=== PATIENT | female | born 1940 | race Caucasian/White ===

== ENCOUNTER 2022-04-08 15:04 | Inpatient (IN) | payer MEDICARE, OTHER ==
[~2022-04-08] VITALS: Ht 152.4 cm; Wt 65.8 kg
--- NOTE | 2022-04-08 15:06 | NUR ---
PT SUSAN KRISHNAMURTHY FROM SNF TO ER BED 01, PER EMS REPORT, PT BEEN FEELING WEEK X 3 DAYS AND DIZZINESS, FEELING "FAINT" SINCE THIS MORNING. PT IS AAOX3 AMBULATORY W/ ASSIST. UNSTEADY. VITALS STABLE. VSS. AWAITING MD GARCIA.
--- NOTE | 2022-04-08 15:18 | NUR ---
DR DE LEÓN AT BEDSIDE FOR EVAL.
[2022-04-08] MEDS ORDERED: IV NS 0.9% 1,000 ML BAG IV ONE (15:30)
--- NOTE | 2022-04-08 15:30 | NUR ---
IV LINE STARTED BLOOD DRAWN AND SENT TO LAB.
[2022-04-08 15:41] LABS: BASOPHILS # (AUTO) 0.1 K/uL (0.0-0.2); BASOPHILS % (AUTO) 0.4 % (0.0-2.0); EOSINOPHILS % (AUTO) 0.7 % (0.0-6.0); HEMATOCRIT 39 % (33-45); HEMOGLOBIN 12.7 g/dL (11.5-14.8); LYMPHOCYTES # (AUTO) 0.7 K/uL (0.8-4.8); LYMPHOCYTES % (AUTO) 5.6 % (20.0-44.0); MEAN CORPUSCULAR HGB CONC 33 g/dl (31.0-36.0); MEAN CORPUSCULAR VOLUME 83 fL (82-100); MONOCYTES # (AUTO) 1.1 K/uL (0.1-1.30); MONOCYTES % (AUTO) 8.7 % (2.0-12.0); NEUTROPHILS # (AUTO) 10.9 K/uL (1.8-8.9); NEUTROPHILS % (AUTO) 84.6 % (43.0-81.0); PLATELET COUNT (AUTO) 234 K/uL (150-450); WHITE BLOOD COUNT (AUTO) 12.8 K/uL (4.3-11.0)
[2022-04-08 15:54] LABS: CALCIUM, SERUM 8.9 mg/dL (8.5-10.1); CARBON DIOXIDE 30 mmol/L (21-32); CHLORIDE 101 mmol/L (98-107); CREATININE 0.6 mg/dL (0.6-1.3); GLUCOSE 127 mg/dL (74-106); POTASSIUM 3.9 mmol/L (3.5-5.1); SODIUM SERUM 134 mmol/L (136-145); UREA NITROGEN, BLOOD 20 mg/dL (7-18)
[2022-04-08 15:59] LABS: ALANINE AMINOTRANSFERASE 33 U/L (12-78); ALBUMIN 3.6 g/dL (3.4-5.0); ALKALINE PHOSPHATASE 101 U/L (46-116); ASPARTATE AMINOTRANSFERASE 23 U/L (15-37); BILIRUBIN,DIRECT 0.3 mg/dL (0.0-0.2); TOTAL PROTEIN, SERUM 7.3 g/dL (6.4-8.2)
[2022-04-08] MEDS ORDERED: IOHEXOL-300 100 ML VIAL IV ONE (16:05)
[2022-04-08] MEDS ORDERED: IV NS 0.9% 250 ML IV ONE (16:05)
[2022-04-08] MEDS ORDERED: CT SWABBABLE VALVE TRANS SET 1 EA INFUS.SET MC ONE (16:06)
[2022-04-08 16:07] LABS: THYROID STIMULATING HORMONE 1.154 uIU/mL (0.358-3.74)
--- NOTE | 2022-04-08 16:11 | NUR ---
PT TO RADIOLOGY FOR HEAD CT SCAN VIA [facility].
--- NOTE | 2022-04-08 17:08 | NUR ---
[facility] CALLED [employer] PAGED.
[2022-04-08 17:29] LABS: BILIRUBIN,URINE NEGATIVE (NEGATIVE); COLOR,URINE YELLOW (YELLOW); LEUKOCYTE ESTERASE ,URINE NEGATIVE (NEGATIVE); NITRITE, URINE POSITIVE (NEGATIVE); PH,URINE 6.5 (5.0-8.0); PROTEIN,URINE NEGATIVE (NEGATIVE); UGLUCOSE NEGATIVE (NEGATIVE); UROBILINOGEN,URINE 0.2 EU/dL (0.2)
[2022-04-08 17:36] LABS: BACTERIA,URINE Many /HPF (None Seen); SQUAMOUS EPITHELIAL CELL,UR Few /HPF (None Seen)
--- NOTE | 2022-04-08 18:03 | NUR ---
[facility] [phone] BARBA.
[2022-04-08] MEDS ORDERED: ACETAMINOPHEN 325 MG TABLET PO PRN (18:30)
[2022-04-08] MEDS ORDERED: ENOXAPARIN SODIUM 40 MG/0.4 ML DISP.SYRIN SQ SCH (18:30)
[2022-04-08] MEDS ORDERED: DEXTROSE 50%-WATER 50 ML DISP.SYRIN IV PRN (18:30)
[2022-04-08] MEDS ORDERED: MORPHINE SULFATE INJ 2 MG/ML DISP.SYRIN IV PRN (18:30)
[2022-04-08] MEDS ORDERED: hydrALAZINE HCL IV 20 MG VIAL IV PRN (18:30)
[2022-04-08] MEDS ORDERED: ONDANSETRON HCL/PF 4 MG/2 ML VIAL IVP PRN (18:30)
[2022-04-08] MEDS ORDERED: INSULIN REGULAR, HUMAN 100 UNIT/ML 3 ML VIAL SQ PRN (18:30)
--- NOTE | 2022-04-08 21:08 | NUR ---
Awilda solitario in [facility] - 04/08/22 at 2122 by JAY JAY KAI COLLECTED AND SENT TO RT
--- NOTE | 2022-04-08 21:08 | NUR ---
Awilda solitario in ED - 04/08/22 at 2122 by JAY JAY LAB AT [facility] FOR REPEAT TROPONIN
--- NOTE | 2022-04-08 22:12 | NUR ---
CALLED 3W, REPORT GIVEN TO ARLEY ALMONTE. PT WILL BE GOING TO RM 328.
[2022-04-08 22:25] VITALS: BP 144/78
--- NOTE | 2022-04-08 22:30 | NUR ---
PT TRANSPORTED TO [facility] 328-B [facility] ACLS PROTOCOL, REMAINED STABLE AND IN NO ACUTE RESPIRATORY DISTRESS. PT RECEIVED BY ARLEY ALMONTE
--- NOTE | 2022-04-08 22:30 | NUR ---
RN NOTES; RECEIVED PT FROM ER IN RM 328-2,AAOX3 ABLE TO MAKE NEEDS KNOWN,MICHAEL WELL ON RM AIR SATING 99%,NO SIGN SOB/DISTRESS NOTED,NO COMPLAIN OF PAIN/DISCOMFORT AT THIS TIMES,IV ACCESS ON RAC 20G SL,PATENT AND INTACT,PT WAS ORIENT THE RM AND VERBALLY UNDERSTANDING,SAFETY MEASURE IN PLACE,CALL LIGHT WITHIN REACH.WILL CONTINUE TO MONITOR.
[2022-04-08] MEDS: ATORVASTATIN 10 MG TABLET PO SCH (23:11)
[2022-04-08] MEDS: MONTELUKAST SODIUM (10MG) 10 MG TABLET PO SCH (23:15)
[2022-04-08] MEDS ORDERED: CEFTRIAXONE 1 G VIAL ONE (23:27)
[2022-04-08] MEDS: CEFTRIAXONE 1 G in IV D5W 50 ML IV SCH (23:30)
[2022-04-08] MEDS: ALBUTEROL FS 2.5 MG/3 ML VIAL.NEB NEB SCH (23:41)
[2022-04-09] MEDS: ALBUTEROL FS 2.5 MG/3 ML VIAL.NEB NEB SCH ×5 (03:30→20:15)
--- NOTE | 2022-04-09 06:41 | NUR ---
RN CLOSING NOTE; PATIENT IN BED AAOX3 ABLE TO MAKE NEEDS KNOWN,MICHAEL WELL ON RM AIR SATING 98 %,NO SIGN SOB/DISTRESS NOTED,NO COMPLAIN OF PAIN/DISCOMFORT DURING SHIFT,DUE MEDS GIVEN ORDER,ALL NEEDS ATTENDED,IV ACCESS ON RAC 20G SL,PATENT AND INTACT,SAFETY MEASURE IN PLACE,CALL LIGHT WITHIN REACH.WILL ENDORES TO NEXT SHIFT.
[2022-04-09] MEDS: BLOOD SUGAR DIAGNOSTIC 1 EACH STRIP IN SCH ×4 (06:43→21:35)
[2022-04-09 07:56] LABS: BASOPHILS # (AUTO) 0.1 K/uL (0.0-0.2); BASOPHILS % (AUTO) 0.9 % (0.0-2.0); EOSINOPHILS % (AUTO) 4.2 % (0.0-6.0); HEMATOCRIT 41 % (33-45); HEMOGLOBIN 13.1 g/dL (11.5-14.8); LYMPHOCYTES % (AUTO) 12.2 % (20.0-44.0); MEAN CORPUSCULAR HGB CONC 32 g/dl (31.0-36.0); MEAN CORPUSCULAR VOLUME 83 fL (82-100); MONOCYTES # (AUTO) 0.9 K/uL (0.1-1.30); MONOCYTES % (AUTO) 11.5 % (2.0-12.0); NEUTROPHILS # (AUTO) 5.8 K/uL (1.8-8.9); NEUTROPHILS % (AUTO) 71.2 % (43.0-81.0); PLATELET COUNT (AUTO) 229 K/uL (150-450); RED BLOOD CELL COUNT(AUTO) 4.86 MIL/uL (4.0-5.2); WHITE BLOOD COUNT (AUTO) 8.1 K/uL (4.3-11.0)
[2022-04-09 08:00] VITALS: BP 145/60
[2022-04-09 08:10] LABS: ALBUMIN 3.4 g/dL (3.4-5.0); BILIRUBIN,TOTAL 0.8 mg/dL (0.2-1.0); CALCIUM, SERUM 9.1 mg/dL (8.5-10.1); CREATININE 0.6 mg/dL (0.6-1.3); MAGNESIUM 2.1 mg/dL (1.8-2.4); PHOSPHORUS 3.4 mg/dL (2.5-4.9); POTASSIUM 3.4 mmol/L (3.5-5.1); TOTAL PROTEIN, SERUM 7.3 g/dL (6.4-8.2)
[2022-04-09] MEDS: PANTOPRAZOLE 40 MG TABLET.DR PO SCH (08:15)
[2022-04-09] MEDS: LEVOTHYROXINE SODIUM 50 MCG TABLET PO SCH (08:16)
[2022-04-09] MEDS: FLUTICASONE/VILANTEROL 1 EACH BLST.W.DEV IH SCH (09:00)
[2022-04-09] MEDS: AMLODIPINE BESYLATE 5 MG TABLET PO SCH (09:17)
[2022-04-09] MEDS: VALSARTAN 80 MG TABLET PO SCH (09:18)
[2022-04-09] MEDS: POTASSIUM CHLORIDE 20 MEQ TAB.PRT.SR PO SCH ×2 (09:30→10:00)
[2022-04-09 12:00] VITALS: BP 139/69
[2022-04-09 16:00] VITALS: BP 134/71
[2022-04-09] MEDS ORDERED: RIVAROXABAN 10 MG TABLET PO SCH (18:00)
--- NOTE | 2022-04-09 19:30 | NUR ---
TOMATO PASTE MAKER OPENING NOTES RECEIVED PATIENT LAYING IN BED ASLEEP, EASY TO AROUSE. A/O X4. AGITATED AND HAS A LOT OF CONCERNS. BREATHING EVEN AND NON-LABORED ON ROOM AIR. DENIES PAIN AT THIS TIME. ON TELE MONITOR READING AFIB AT 89 BPM. HAS RIGHT ANTECUBITAL IV ACCESS #20G AND SALINE LOCKED. LEAKING NOTED. SAFETY PRECAUTIONS IN PLACE: BED LOW AND LOCKED, SIDE RAILS UP X2, CALL LIGHT WITHIN REACH. WILL CONTINUE POC.
[2022-04-09 20:00] VITALS: BP 149/97
[2022-04-09] MEDS: ATORVASTATIN 10 MG TABLET PO SCH (21:35)
[2022-04-09] MEDS: MONTELUKAST SODIUM (10MG) 10 MG TABLET PO SCH (21:36)
[2022-04-09] MEDS: CEFTRIAXONE 1 G in IV D5W 50 ML IV SCH (22:48)
[2022-04-10] VITALS: BP 137/87
[2022-04-10] MEDS: ALBUTEROL FS 2.5 MG/3 ML VIAL.NEB NEB SCH ×4 (00:05→11:38)
[2022-04-10 04:00] VITALS: BP 143/79
--- NOTE | 2022-04-10 07:02 | NUR ---
BONE WORKER CLOSING NOTES PATIENT LAYING IN BED AWAKE. ABLE TO VERBALIZED NEEDS. PER PATIENT, SHE GOES TO THE BATHROOM TO PEE. NOT IN CARDIAC OR RESPIRATORY DISTRESS. AFEBRILE. STABLE THROUGHOUT THE SHIFT. ANSWERED PATIENT'S QUESTIONS AND SHE IS MORE CALM NOW. ON TELE MONITOR READING AFIB AT 80 BPM. HAS RIGHT WRIST IV ACCESS #22G AND SALINE LOCKED. INTACT, PATENT AND FLUSHING. ALL DUE MEDS GIVEN AND NEEDS ATTENDED. SAFETY PRECAUTIONS MAINTAINED. WILL ENDORSE TO NEXT SHIFT FOR SHANITA.
[2022-04-10] MEDS: PANTOPRAZOLE 40 MG TABLET.DR PO SCH (07:30)
[2022-04-10] MEDS: LEVOTHYROXINE SODIUM 50 MCG TABLET PO SCH (07:30)
[2022-04-10 08:00] VITALS: BP 147/88
[2022-04-10] MEDS ORDERED: LEVO50TA8 PO (08:28)
[2022-04-10] MEDS ORDERED: AMLO-212 PO (08:28)
[2022-04-10] MEDS ORDERED: VALS320T16 PO (08:28)
[2022-04-10] MEDS ORDERED: CRAN425C6 PO (08:28)
[2022-04-10] MEDS ORDERED: ESOM20CA37 PO (08:28)
[2022-04-10] MEDS ORDERED: ATOR10TA PO (08:28)
[2022-04-10] MEDS ORDERED: MONT10TA22 PO (08:28)
[2022-04-10] MEDS ORDERED: METF-440 PO (08:28)
[2022-04-10] MEDS ORDERED: RIVA10TA PO (08:28)
[2022-04-10] MEDS ORDERED: ACET-2605 PO (08:28)
[2022-04-10] MEDS ORDERED: ASPI-1420 PO (08:28)
[2022-04-10] MEDS ORDERED: DOXA1TAB4 PO (08:28)
[2022-04-10] MEDS ORDERED: FOLI-65 PO (08:28)
[2022-04-10] MEDS ORDERED: ESTR42.511 VG (08:28)
[2022-04-10] MEDS ORDERED: FLUT1DIS3 IH (08:29)
[2022-04-10] MEDS ORDERED: ALBU18HF2 IH (08:29)
[2022-04-10] MEDS ORDERED: FLUT16SP (08:29)
[2022-04-10] MEDS ORDERED: MENT71OI2 TP (08:29)
[2022-04-10] MEDS ORDERED: TRIAMCINOLONE ACETONIDE 0.1% CR 15 GM TUBE TP SCH (09:00)
--- NOTE | 2022-04-10 09:00 | NUR ---
rn opening note pt in alert and oriented x4. able to make needs known. pt ambulatory with steady gait. pt has r iv.intact, patent and flushing well. afbrile. pt on room air tolerating well. all safety precautions in place. call light within reach, bed locked at lowest position. side rails up x2. bed alarm on.
[2022-04-10] MEDS: BLOOD SUGAR DIAGNOSTIC 1 EACH STRIP IN SCH ×2 (09:43→12:03)
[2022-04-10] MEDS: VALSARTAN 80 MG TABLET PO SCH (09:59)
[2022-04-10 10:00] VITALS: BP 147/88
[2022-04-10] MEDS: AMLODIPINE BESYLATE 5 MG TABLET PO SCH (10:00)
[2022-04-10] MEDS: FLUTICASONE/VILANTEROL 1 EACH BLST.W.DEV IH SCH (10:01)
[2022-04-10] MEDS ORDERED: NITR100C6 PO (10:18)
--- NOTE | 2022-04-10 14:12 | NUR ---
rn note attempted to call Clara Mohamud 3 times to give report. notified nurse discharge.
--- NOTE | 2022-04-10 15:28 | NUR ---
sports marketing internship note pt stable condition. went over discharge paperwork with pt. pt verbalized understanding. returned pt belongings. pt picked up by son and taken to [facility] living [facility]. no signs of pain or discomfort at this time
[2022-04-10] MEDS ORDERED: METFORMIN 500 MG TABLET PO SCH (22:00)
== END 2022-04-10 15:30 | DRG 690 ==
LOC: ER 15:06 → TELE 21:54
PROVIDERS: ADMIT Internal Medicine; ATTEND Internal Medicine
DX: N39.0 Urinary tract infection, site not specified (principal); E87.1 Hypo-osmolality and hyponatremia; I11.0 Hypertensive heart disease with heart failure; I48.91 Unspecified atrial fibrillation; I50.9 Heart failure, unspecified; J44.9 Chronic obstructive pulmonary disease, unspecified; E03.9 Hypothyroidism, unspecified; E78.5 Hyperlipidemia, unspecified; Z88.1 Allergy status to other antibiotic agents; Z88.8 Allergy status to other drugs, medicaments and biological substances; E04.1 Nontoxic single thyroid nodule; D72.829 Elevated white blood cell count, unspecified; Z79.01 Long term (current) use of anticoagulants; E11.9 Type 2 diabetes mellitus without complications; Z79.899 Other long term (current) drug therapy; E87.6 Hypokalemia; M43.12 Spondylolisthesis, cervical region
CPT/HCPCS: 36415; 70450-TC; 70491-TC; 71045-TC; 80048-TC; 80053-TC; 80076-TC; 81001; 82962-TC; 83605-TC; 83735-TC; 84100-TC; 84439-TC; 84443-TC; 84484-TC; 85025-TC; 87040-TC; 87081-TC; 87086-TC; 87186-TC; 93307-TC; 97116-TC; 97530-TC; C9803; G0378; J0696; J1815; J7030; J7040; J7050; J7060; Q9967

== ENCOUNTER 2022-08-29 13:39 | Emergency (ER) | payer MEDICARE, OTHER ==
[~2022-08-29] VITALS: Ht 152.4 cm; Wt 64.4 kg
[~2022-08-29 13:39] MED LIST: ACET-2605 PO; ALBU18HF2 IH; AMLO-212 PO; ASPI-1420 PO; ATOR10TA PO; CRAN425C6 PO; DOXA1TAB4 PO; ESOM20CA37 PO; ESTR42.511 VG; FLUT16SP; FLUT1DIS3 IH; FOLI-65 PO; LEVO50TA8 PO; MENT71OI2 TP; METF-440 PO; MONT10TA22 PO; NITR100C6 PO; RIVA10TA PO; VALS320T16 PO
[2022-08-29 13:57] VITALS: BP 133/82
--- NOTE | 2022-08-29 13:57 | NUR ---
SUSAN KRISHNAMURTHY FROM [facility] FOR REMOVAK OF STAPLE,R PARIETAL LACERATION STAPLED IN [facility] IN 08/03/2022
--- NOTE | 2022-08-29 14:58 | NUR ---
CALLED [facility] AND SET UP BLS TRANSPORT ETA 1600
--- NOTE | 2022-08-29 16:07 | NUR ---
Patient discharged to home in stable condition. Written and verbal after care instructions given. Patient verbalizes understanding of instruction.
== END 2022-08-29 17:00 | disposition home or self-care (01) ==
LOC: ER 13:45
DX: S01.01XD Laceration without foreign body of scalp, subsequent encounter (principal); I11.0 Hypertensive heart disease with heart failure; I50.9 Heart failure, unspecified; I48.91 Unspecified atrial fibrillation; J45.909 Unspecified asthma, uncomplicated; E11.9 Type 2 diabetes mellitus without complications; E03.9 Hypothyroidism, unspecified; E78.5 Hyperlipidemia, unspecified; Z88.8 Allergy status to other drugs, medicaments and biological substances; Z79.899 Other long term (current) drug therapy; X58.XXXD Exposure to other specified factors, subsequent encounter

== ENCOUNTER 2022-10-24 18:27 | Emergency (ER) | payer MEDICARE, OTHER ==
[~2022-10-24] VITALS: Ht 152.4 cm; Wt 68.0 kg
--- NOTE | 2022-10-24 19:37 | NUR ---
CORINNE FROM CORRECTION FOR C/O POSTERIOR H/A S/P FALL BACKWARD. -KO. ON BLOOD THINNER. PT PLACED COMFORTABLY IN BED, VITALS CHECKED.
--- NOTE | 2022-10-24 20:17 | NUR ---
1-PERSON ASSIST W/ AMBULATING TO RESTROOM
--- NOTE | 2022-10-24 20:23 | NUR ---
PT TAKEN TO CT W/ TECH
--- NOTE | 2022-10-24 20:37 | NUR ---
PT BACK FROM CT
--- NOTE | 2022-10-24 21:20 | NUR ---
[facility] CALLED FOR BLS TRANSPORT. ETA 1.5 HRS.
--- NOTE | 2022-10-24 22:43 | NUR ---
REPORT GIVEN TO MIREYA FOR TRANSPORT BACK TO FACILITY
[2022-10-24 22:44] VITALS: BP 124/68
--- NOTE | 2022-10-24 22:52 | NUR ---
Patient discharged to SNF in stable condition. Written and verbal after care instructions given. Patient verbalizes understanding of instruction.
== END 2022-10-24 22:54 | disposition home or self-care (01) ==
LOC: ER 18:33
DX: S09.90XA Unspecified injury of head, initial encounter (principal); I11.0 Hypertensive heart disease with heart failure; I50.9 Heart failure, unspecified; I48.91 Unspecified atrial fibrillation; J45.909 Unspecified asthma, uncomplicated; E11.9 Type 2 diabetes mellitus without complications; E03.9 Hypothyroidism, unspecified; E78.5 Hyperlipidemia, unspecified; F17.200 Nicotine dependence, unspecified, uncomplicated; Z88.8 Allergy status to other drugs, medicaments and biological substances; Z79.899 Other long term (current) drug therapy
CPT/HCPCS: 70450-TC; 72125-TC

== ENCOUNTER 2022-12-16 12:18 | Inpatient (IN) | payer MEDICARE, OTHER ==
[~2022-12-16] VITALS: Ht 152.4 cm; Wt 70.3 kg
--- NOTE | 2022-12-16 12:20 | NUR ---
BIB PA FROM [facility] FOR WEAKNESS AND LOW O2SAT (88-90% RA). PLACED IN BED, AAOX4, BREATHING EVEN AND UNLABORED SATURATING AT 97% WITH O2 2LIT VIA NC.
--- NOTE | 2022-12-16 12:55 | NUR ---
AT BEDSIDE FOR EVAL.
[2022-12-16] MEDS ORDERED: ALBUTEROL FS 2.5 MG/3 ML VIAL.NEB NEB ONE (13:30)
[2022-12-16] MEDS ORDERED: IPRATROPIUM NEB FS 0.5 MG/2.5 ML AMPUL.NEB NEB ONE (13:30)
[2022-12-16] MEDS ORDERED: ALBUTEROL FS 2.5 MG/3 ML VIAL.NEB ONE (13:31)
[2022-12-16] MEDS ORDERED: IPRATROPIUM NEB FS 0.5 MG/2.5 ML AMPUL.NEB ONE (13:31)
--- NOTE | 2022-12-16 13:32 | NUR ---
TRAFFIC MAINTENANCE SUPERVISOR AT BEDSIDE
[2022-12-16 14:04] LABS: CARBON DIOXIDE 31 mmol/L (21-32); CHLORIDE 102 mmol/L (98-107); CREATININE 0.4 mg/dL (0.6-1.3); GLUCOSE 94 mg/dL (74-106); POTASSIUM 3.4 mmol/L (3.5-5.1); SODIUM SERUM 139 mmol/L (136-145); UREA NITROGEN, BLOOD 17 mg/dL (7-18)
[2022-12-16 14:08] VITALS: O2SAT 97
[2022-12-16 14:18] LABS: ALANINE AMINOTRANSFERASE 27 U/L (12-78); ALBUMIN 3.1 g/dL (3.4-5.0); ALKALINE PHOSPHATASE 110 U/L (46-116); ASPARTATE AMINOTRANSFERASE 17 U/L (15-37); BILIRUBIN,DIRECT 0.2 mg/dL (0.0-0.2); TOTAL PROTEIN, SERUM 6.6 g/dL (6.4-8.2)
[2022-12-16 14:20] VITALS: O2SAT 100
[2022-12-16 14:29] LABS: BASOPHILS # (AUTO) 0.1 K/uL (0.0-0.2); EOSINOPHILS % (AUTO) 2.5 % (0.0-6.0); HEMATOCRIT 36 % (33-45); HEMOGLOBIN 11.8 g/dL (11.5-14.8); LYMPHOCYTES # (AUTO) 1.2 K/uL (0.8-4.8); LYMPHOCYTES % (AUTO) 12.5 % (20.0-44.0); MEAN CORPUSCULAR HGB CONC 32 g/dl (31.0-36.0); MEAN CORPUSCULAR VOLUME 80 fL (82-100); MONOCYTES % (AUTO) 10.2 % (2.0-12.0); NEUTROPHILS # (AUTO) 7.2 K/uL (1.8-8.9); NEUTROPHILS % (AUTO) 73.8 % (43.0-81.0); PLATELET COUNT (AUTO) 258 K/uL (150-450); RED BLOOD CELL COUNT(AUTO) 4.56 MIL/uL (4.0-5.2); WHITE BLOOD COUNT (AUTO) 9.7 K/uL (4.3-11.0)
[2022-12-16] MEDS ORDERED: methylPREDNISolone SOD SUCC 125 MG/2ML VIAL IV ONE (15:30)
[2022-12-16] MEDS ORDERED: methylPREDNISolone SOD SUCC 125 MG/2ML VIAL ONE (16:00)
[2022-12-16] MEDS ORDERED: FUROSEMIDE 20 MG/2 ML VIAL IV ONE (16:00)
[2022-12-16] MEDS ORDERED: FURO-145 PO (16:12)
[2022-12-16] MEDS ORDERED: VALS160T2 PO (16:12)
[2022-12-16] MEDS ORDERED: LEVA15HF4 IH (16:12)
[2022-12-16] MEDS ORDERED: BLOO-668 IN (16:12)
[2022-12-16] MEDS ORDERED: BUDE10.2 IH (16:12)
[2022-12-16] MEDS ORDERED: METH4TAB17 PO (16:12)
[2022-12-16] MEDS ORDERED: FUROSEMIDE 20 MG/2 ML VIAL ONE (16:50)
--- NOTE | 2022-12-16 16:51 | NUR ---
GOT BED 116-1 ADMITTING INFORMED.
--- NOTE | 2022-12-16 17:02 | NUR ---
REPORT GIVEN TO JACQUE TUBBS ROOM 116-1 FOR SHANITA
[2022-12-16 18:00] VITALS: BP 147/78; TEMP 98.7
--- NOTE | 2022-12-16 18:57 | NUR ---
MOUTHPIECE MAKER NOTE PATIENT LOS ALERT , ORIENTED TIMES 4, ABLE TO AMBULATE WITH ASSISTANCE TO THE RESTROOM .PATIENT ADMITTED TO THE HOSPITAL DUE TO DEVELOPED SOB , AND GENERALIZED WEAKNESS .PATIENT HAS BLE MULTIPLE WOUNDS , DTI ON THE SACRUM AREA , WOUND CONSULT ORDERED .BED IS AT LOWEST POSITION , CALL LIGHT WITHIN REACH, BED SIDE RAILS ARE UP , WILL ENDORSE TO THE TRIMMER MEAT NURSE TO FALLOW POC
[2022-12-16] MEDS ORDERED: Z GUARD REMEDY 4 OZ OINT TP PRN (19:00)
[2022-12-16] MEDS ORDERED: ONDANSETRON HCL/PF 4 MG/2 ML VIAL IVP PRN (19:00)
[2022-12-16] MEDS ORDERED: POTASSIUM CHLORIDE 10 MEQ TABLET.SA PO ONE (19:00)
[2022-12-16] MEDS ORDERED: MAGNESIUM HYDROXIDE 30 ML UDC PO PRN (19:00)
[2022-12-16] MEDS ORDERED: ACETAMINOPHEN 325 MG TABLET PO PRN (19:00)
--- NOTE | 2022-12-16 19:20 | NUR ---
RN NOTE RECEIVED PT FOR CONTINUITY OF CARE. PATIENT A/OX4 IN NO S/SX OF ACUTE DISTRESS AT THIS TIME; CURRENTLY ON 2L OF O2 VIA NC; WITH 02 SAT >95% AT THIS TIME.WITH IV ACCESS ON R HAND #20PATENT, INTACT AND FLUSHING WELL. WILL ENSURE SAFETY MEASURES WITHIN THE SHIFT. PATIENT BED ALARM IS ON. HEAD OF BED ELEVATED. BED IS LOCKED, IN LOWEST POSITION AND SIDE RAILS UP. CALL LIGHT WITHIN REACH OF THE PATIENT. WILL CONTINUE TO MONITOR AND REASSESS FOR ANY CHANGES AND WILL CARRY OUT ANY ONGOING AND ACTIVE MD ORDER.
[2022-12-16] MEDS ORDERED: ALBUTEROL FS 2.5 MG/3 ML VIAL.NEB NEB SCH (19:30)
[2022-12-16] MEDS ORDERED: DEXTROSE 50%-WATER 50 ML DISP.SYRIN IV PRN (19:30)
[2022-12-16 19:48] VITALS: O2SAT 97
[2022-12-16 20:00] VITALS: BP 159/90; TEMP 98; O2SAT 94
[2022-12-16] MEDS: LEVALBUTEROL HCL NEB 1.25 MG/0.5 ML VIAL.NEB NEB SCH (20:01)
[2022-12-16] MEDS: IPRATROPIUM NEB FS 0.5 MG/2.5 ML AMPUL.NEB NEB SCH (20:01)
[2022-12-16 20:03] VITALS: O2SAT 100
--- NOTE | 2022-12-16 20:20 | NUR ---
RN NOTE REPORT GIVEN TO ARLEY SINGH FOR SHANITA.
--- NOTE | 2022-12-16 20:25 | NUR ---
MS RN CONTINUITY OF CARE RECEIVED PT FOR CONTINUITY OF CARE. PATIENT IN BED, WATCHING TV. A/O X 4. ON 2L OXYGEN VIA NC, BREATHING EVEN AND UNLABORED, NO S/SX OF ACUTE DISTRESS AT THIS TIME O2 SAT >95% AT THIS TIME. IV ACCESS ON RIGHT HAND #20G PATENT, INTACT AND FLUSHING WELL. HEAD OF BED ELEVATED. SAFETY MEASURES IN PLACE WITH BED IN LOWEST LOCKED POSITION. SIDE RAILS UP. CALL LIGHT AND TRAY WITHIN EASY REACH. WILL CONTINUE TO MONITOR THE PATIENT.
[2022-12-16] MEDS ORDERED: SULFAMETH/TRIMETH 800/160 MG 1 UDTAB TABLET PO SCH (21:00)
[2022-12-16] MEDS: ATORVASTATIN 10 MG TABLET PO SCH (22:02)
[2022-12-16] MEDS: MONTELUKAST SODIUM (10MG) 10 MG TABLET PO SCH (22:02)
[2022-12-17] VITALS (11 sets, daily range): BP systolic 125–145; BP diastolic 69–80; TEMP 97.6–98.2; O2SAT 96–100
[2022-12-17] MEDS: BLOOD SUGAR DIAGNOSTIC 1 EACH STRIP IN SCH ×6 (00:32→23:43)
[2022-12-17] MEDS: ALBUTEROL FS 2.5 MG/3 ML VIAL.NEB NEB SCH ×4 (01:30→19:48)
[2022-12-17] MEDS: IPRATROPIUM NEB FS 0.5 MG/2.5 ML AMPUL.NEB NEB SCH ×4 (01:35→19:48)
[2022-12-17] MEDS: LEVALBUTEROL HCL NEB 1.25 MG/0.5 ML VIAL.NEB NEB SCH ×4 (01:35→19:30)
[2022-12-17] MEDS: INSULIN REGULAR, HUMAN 100 UNIT/ML 3 ML VIAL SQ PRN ×3 (06:00→17:28)
[2022-12-17 06:25] LABS: BASOPHILS % (AUTO) 0.1 % (0.0-2.0); HEMATOCRIT 37 % (33-45); HEMOGLOBIN 11.9 g/dL (11.5-14.8); LYMPHOCYTES # (AUTO) 0.6 K/uL (0.8-4.8); MEAN CORPUSCULAR HGB CONC 33 g/dl (31.0-36.0); MEAN CORPUSCULAR VOLUME 80 fL (82-100); MONOCYTES # (AUTO) 0.3 K/uL (0.1-1.30); MONOCYTES % (AUTO) 3.8 % (2.0-12.0); NEUTROPHILS # (AUTO) 7.8 K/uL (1.8-8.9); NEUTROPHILS % (AUTO) 89.1 % (43.0-81.0); PLATELET COUNT (AUTO) 280 K/uL (150-450); RED BLOOD CELL COUNT(AUTO) 4.55 MIL/uL (4.0-5.2); WHITE BLOOD COUNT (AUTO) 8.7 K/uL (4.3-11.0)
[2022-12-17 06:47] LABS: CALCIUM, SERUM 9.3 mg/dL (8.5-10.1); CREATININE 0.6 mg/dL (0.6-1.3); MAGNESIUM 2.1 mg/dL (1.8-2.4); PHOSPHORUS 4.6 mg/dL (2.5-4.9); POTASSIUM 3.9 mmol/L (3.5-5.1)
--- NOTE | 2022-12-17 06:47 | NUR ---
DRAIN TILE PRESS OPERATOR CLOSING NOTES PATIENT IN BED SLEEPING IN BED. EASILY AWAKEN BY VERBAL STIMULI. A/O X 4. ON 2L OXYGEN VIA NC, BREATHING EVEN AND UNLABORED, NO S/SX OF ACUTE DISTRESS AT THIS TIME O2 SAT >95% AT THIS TIME. IV ACCESS ON RIGHT HAND #20G PATENT, INTACT AND FLUSHING WELL. ON EXTERNAL CAR ELECTRONICS INSTALLER WITH CURRENT READING OF AFIB WITH A FLUTTER @ CURRENT HR OF 81, NO CARDIAC DISTRESS NOTED. HEAD OF BED ELEVATED. SAFETY MEASURES MAINATINED DURING SHIFT. WILL ENDORSE TO THE NEXT SHIFT.
[2022-12-17] MEDS ORDERED: PANTOPRAZOLE 40 MG TABLET.DR PO SCH (07:30)
[2022-12-17] MEDS: BUDESONIDE RESPULE INH 0.5 MG/2 ML AMPUL.NEB NEB SCH ×2 (08:11→13:29)
[2022-12-17] MEDS: FUROSEMIDE 40 MG/4 ML VIAL IV SCH ×3 (08:36→17:53)
[2022-12-17] MEDS: PANTOPRAZOLE 40 MG TABLET.DR PO SCH (08:36)
[2022-12-17] MEDS: LEVOTHYROXINE SODIUM 50 MCG TABLET PO SCH (08:36)
[2022-12-17] MEDS: DOXAZOSIN MESYLATE (1 MG) 1 MG TABLET PO SCH (08:38)
[2022-12-17] MEDS: ASPIRIN EC 81 MG TABLET.DR PO SCH (08:38)
[2022-12-17] MEDS: FLUTICASONE PROPIONATE 16 GM BOTTLE NS SCH (08:38)
[2022-12-17] MEDS: VALSARTAN 80 MG TABLET PO SCH (08:39)
[2022-12-17] MEDS: predniSONE 20 MG TABLET PO SCH ×2 (08:40→17:54)
[2022-12-17] MEDS: MULTIVIT W/MINERALS 1 TAB TABLET PO SCH (08:40)
[2022-12-17] MEDS: AMLODIPINE BESYLATE 5 MG TABLET PO SCH (08:49)
[2022-12-17] MEDS: POTASSIUM CHLORIDE 20 MEQ TAB.PRT.SR PO SCH ×3 (08:49→11:21)
[2022-12-17] MEDS ORDERED: FUROSEMIDE 20 MG/2 ML VIAL IV SCH (09:00)
[2022-12-17] MEDS ORDERED: Medication Not On Formulary EA (Budesonide/Formoterol Fumarate (Symbicort 160-4.5 Mcg In IH SCH (09:00)
[2022-12-17] MEDS: METFORMIN 500 MG TABLET PO SCH (17:53)
[2022-12-17] MEDS: RIVAROXABAN 10 MG TABLET PO SCH (17:55)
--- NOTE | 2022-12-17 18:55 | NUR ---
WHEEL INSPECTOR CLOSING NOTE: ALERT X4. UNLABORED BREATHING WITH 02 2 LITERS NASAL CANNULA SATING AT 94%. TELECOMMUNICATIONS ENGINEER A.FIB 84. IN ON RIGHT HAND PATENT SALINE LOCKED. PUREWICK ON WITH OUTPUT OF 1200ML YELLOW URINE. ASSISTED TO BATHROOM X1 BM. BLOOD GLUCOSE CHECKED, COVERED ORDERED. NO S/S OF HYPO OR HYPERGLYCEMIA. HOB ELEVATED, BILATERAL HALF SIDE RAILS UP X2. BED IN LOW POSITION, LOCKED, EXIT ALARM ON. CALL LIGHT IN REACH. KEPT CLEAN AND COMFORTABLE. DENIES PAIN.
--- NOTE | 2022-12-17 19:30 | NUR ---
TOASTER ELEMENT REPAIRER OPENING NOTE RECEIVED PATIENT IN BED, WATCHING TV. A/O X 4. ON 2L OXYGEN VIA NC, BREATHING EVEN AND UNLABORED, NO S/SX OF ACUTE DISTRESS AT THIS TIME O2 SAT >97% AT THIS TIME. IV ACCESS ON RIGHT HAND #20G PATENT, INTACT AND FLUSHING WELL. HEAD OF BED ELEVATED. SAFETY MEASURES IN PLACE WITH BED IN LOWEST LOCKED POSITION. SIDE RAILS UP. CALL LIGHT AND TRAY WITHIN EASY REACH. WILL CONTINUE TO MONITOR THE PATIENT
[2022-12-17] MEDS: MONTELUKAST SODIUM (10MG) 10 MG TABLET PO SCH (21:19)
[2022-12-17] MEDS: ATORVASTATIN 10 MG TABLET PO SCH (21:20)
--- NOTE | 2022-12-17 23:44 | NUR ---
COMPRESSOR TECHNICIAN NOTE PATIENT BLOOD SUGAR READING 153, PATIENT REFUSED COVERAGE AT THIS TIME,
[2022-12-18] VITALS (10 sets, daily range): BP systolic 124–144; BP diastolic 66–81; TEMP 97.6–98.2; O2SAT 94–100
[2022-12-18] MEDS: IPRATROPIUM NEB FS 0.5 MG/2.5 ML AMPUL.NEB NEB SCH ×4 (01:30→19:49)
[2022-12-18] MEDS: LEVALBUTEROL HCL NEB 1.25 MG/0.5 ML VIAL.NEB NEB SCH ×4 (01:30→19:30)
[2022-12-18] MEDS: ALBUTEROL FS 2.5 MG/3 ML VIAL.NEB NEB SCH ×4 (01:30→19:49)
[2022-12-18] MEDS: BLOOD SUGAR DIAGNOSTIC 1 EACH STRIP IN SCH ×3 (05:27→18:07)
[2022-12-18] MEDS: INSULIN REGULAR, HUMAN 100 UNIT/ML 3 ML VIAL SQ PRN ×2 (05:30→18:06)
--- NOTE | 2022-12-18 06:32 | NUR ---
DEGREASER OPERATOR CLOSING NOTE ALERT X4. UNLABORED BREATHING WITH 02 2 LITERS NASAL CANNULA SATING AT 97%. FIRE BOSS A.FIB 80S. IN ON RIGHT HAND PATENT SALINE LOCKED. PUREWICK ON WITH OUTPUT OF 1200ML YELLOW URINE. BLOOD GLUCOSE CHECKED. NO S/S OF HYPO OR HYPERGLYCEMIA. HOB ELEVATED, BILATERAL HALF SIDE RAILS UP X2. BED IN LOW POSITION, LOCKED, EXIT ALARM ON. CALL LIGHT IN REACH. KEPT CLEAN AND COMFORTABLE. DENIES PAIN. WILL ENDORSE AM SHIFT FOR SHANITA
--- NOTE | 2022-12-18 07:10 | NUR ---
KAILEE TUBBS OPEN NOTE: ALERT X4. UNLABORED BREATHING WITH 02 2 LPM NASAL CANNULA. ETHOLOGIST SINUS RHYTHM 79'S WITH PVC'S. RIGHT HAND G22 PATENT SALINE LOCKED. PUREWICK ON WITH YELLOW URINE. HOB ELEVATED, BILATERAL HALF SIDE RAILS UP X2. BED IN LOW POSITION, LOCKED, EXIT ALARM ON. CALL LIGHT IN REACH DENIES PAIN. Addendum: 12/18/22 at 0756 by MOODY GARCIA RN CLARIFICATION: ETHOLOGIST A.FIB 79.
[2022-12-18 07:27] LABS: BASOPHILS % (AUTO) 0.1 % (0.0-2.0); EOSINOPHILS % (AUTO) 0.1 % (0.0-6.0); HEMATOCRIT 39 % (33-45); HEMOGLOBIN 12.4 g/dL (11.5-14.8); LYMPHOCYTES # (AUTO) 1.1 K/uL (0.8-4.8); LYMPHOCYTES % (AUTO) 6.6 % (20.0-44.0); MEAN CORPUSCULAR HGB CONC 32 g/dl (31.0-36.0); MEAN CORPUSCULAR VOLUME 81 fL (82-100); MONOCYTES % (AUTO) 6.2 % (2.0-12.0); NEUTROPHILS # (AUTO) 14.7 K/uL (1.8-8.9); PLATELET COUNT (AUTO) 298 K/uL (150-450); RED BLOOD CELL COUNT(AUTO) 4.79 MIL/uL (4.0-5.2); WHITE BLOOD COUNT (AUTO) 16.9 K/uL (4.3-11.0)
[2022-12-18] MEDS: BUDESONIDE RESPULE INH 0.5 MG/2 ML AMPUL.NEB NEB SCH ×2 (07:43→15:40)
[2022-12-18 07:57] LABS: ALANINE AMINOTRANSFERASE 24 U/L (12-78); ALBUMIN 3.3 g/dL (3.4-5.0); ALKALINE PHOSPHATASE 111 U/L (46-116); ASPARTATE AMINOTRANSFERASE 12 U/L (15-37); BILIRUBIN,TOTAL 0.7 mg/dL (0.2-1.0); CALCIUM, SERUM 9.5 mg/dL (8.5-10.1); CARBON DIOXIDE 31 mmol/L (21-32); CHLORIDE 102 mmol/L (98-107); CREATININE 0.5 mg/dL (0.6-1.3); GLUCOSE 164 mg/dL (74-106); MAGNESIUM 2.2 mg/dL (1.8-2.4); PHOSPHORUS 3.8 mg/dL (2.5-4.9); SODIUM SERUM 139 mmol/L (136-145); UREA NITROGEN, BLOOD 21 mg/dL (7-18)
[2022-12-18] MEDS: LEVOTHYROXINE SODIUM 50 MCG TABLET PO SCH (09:33)
[2022-12-18] MEDS: PANTOPRAZOLE 40 MG TABLET.DR PO SCH (09:33)
[2022-12-18] MEDS: FLUTICASONE PROPIONATE 16 GM BOTTLE NS SCH (09:33)
[2022-12-18] MEDS: predniSONE 20 MG TABLET PO SCH ×2 (09:34→18:06)
[2022-12-18] MEDS: MULTIVIT W/MINERALS 1 TAB TABLET PO SCH (09:34)
[2022-12-18] MEDS: ASPIRIN EC 81 MG TABLET.DR PO SCH (09:34)
[2022-12-18] MEDS: METFORMIN 500 MG TABLET PO SCH ×2 (09:34→18:07)
[2022-12-18] MEDS: DOXAZOSIN MESYLATE (1 MG) 1 MG TABLET PO SCH (09:34)
[2022-12-18] MEDS: AMLODIPINE BESYLATE 5 MG TABLET PO SCH (09:35)
[2022-12-18] MEDS: VALSARTAN 80 MG TABLET PO SCH (09:35)
[2022-12-18 18:01] LABS: ABG BASE EXCESS 6.5 mmol/L; ABG OXYGEN SATURATION 93.2 % (92.0-98.5); ABG PCO2 40.8 mmHg (35.0-45.0); ABG PO2 69.5 mmHg (75.0-100.0); COHb 0.7 % (0.5-1.5); MetHb 0.4 % (0.0-1.5); O2Hb 92.2 % (94.0-97.0); SITE, ABG Left Radial; VENT MODE, BG room air
[2022-12-18] MEDS: RIVAROXABAN 10 MG TABLET PO SCH (18:06)
--- NOTE | 2022-12-18 18:55 | NUR ---
PAIN MANAGEMENT SPECIALIST CLOSING NOTE: ALERT X4. UNLABORED BREATHING SATING AT 98%. SHEET METAL FABRICATOR SINUS A.FIB. RIGHT HAND G22 PATENT SALINE LOCKED. ASSISTED TO BATHROOM AMBULATORY HAND HELD ASSIST. HOB ELEVATED, BILATERAL HALF SIDE RAILS UP X2. BED IN LOW POSITION, LOCKED, EXIT ALARM ON. CALL LIGHT IN REACH DENIES PAIN. BLOOD GLUCOSE CHECKED COVERED ORDERED WITH NO S/S OF HYPO OR HYPERGLYCEMIA. DENIES PAIN.
--- NOTE | 2022-12-18 20:00 | NUR ---
RN SURG OPENING NOTE RECEIVED PATIENT IN BED, RESTNG A/O X 4. PT IS EATING DINNER. PT IS ON ROOM AIR TOLERATING WELL, BREATHING EVEN AND UNLABORED, NO S/SX OF ACUTE DISTRESS AT THIS TIME. IV ACCESS ON RT HAND #20G PATENT, INTACT AND FLUSHING WELL. HEAD OF BED ELEVATED. SAFETY MEASURES IN PLACE WITH BED IN LOWEST LOCKED POSITION. SIDE RAILS UP. CALL LIGHT WITHIN REACH. WILL CONTINUE TO MONITOR.
[2022-12-18] MEDS: MONTELUKAST SODIUM (10MG) 10 MG TABLET PO SCH (21:22)
[2022-12-18] MEDS: ATORVASTATIN 10 MG TABLET PO SCH (21:22)
[2022-12-19] MEDS: BLOOD SUGAR DIAGNOSTIC 1 EACH STRIP IN SCH ×3 (00:17→12:13)
[2022-12-19] MEDS: INSULIN REGULAR, HUMAN 100 UNIT/ML 3 ML VIAL SQ PRN ×3 (00:21→12:13)
[2022-12-19] MEDS: ALBUTEROL FS 2.5 MG/3 ML VIAL.NEB NEB SCH ×3 (01:27→14:38)
[2022-12-19] MEDS: IPRATROPIUM NEB FS 0.5 MG/2.5 ML AMPUL.NEB NEB SCH ×3 (01:27→14:38)
[2022-12-19] MEDS: LEVALBUTEROL HCL NEB 1.25 MG/0.5 ML VIAL.NEB NEB SCH ×3 (01:27→13:30)
[2022-12-19 04:00] VITALS: BP 145/86; TEMP 98.2; O2SAT 98
--- NOTE | 2022-12-19 06:15 | NUR ---
RN NOTE BLOOD SUGAR IS 118. NO INSULIN IS GIVEN. NO S/S OF HYPER/HYPOGLYCEMIA. WILL CONTINUE TO MONITOR.
--- NOTE | 2022-12-19 06:50 | NUR ---
RECEIVING LEAD CLOSING NOTE PT RESTING IN BED, A/O X4. ON N/C 2L UNLABORED BREATHING SATING AT 98%. ELECTROLYSIS NEEDLE OPERATOR SHOWS CONTROLLED A.FIB 83. IV ON THE RIGHT HAND G22 INTACT AND PATENT SALINE LOCKED. HOB ELEVATED, SIDE RAILS UP X2. BED IN LOWEST POSITION, LOCKED, BED ALARM ON. CALL LIGHT WITHIN REACH. DENIES PAIN. BLOOD GLUCOSE CHECKED ORDERED WITH NO S/S OF HYPO OR HYPERGLYCEMIA. ALL DUE MEDS ARE GIVEN ORDERED. WILL ENDORSE CARE TO AM SHIFT RN.
[2022-12-19 07:30] VITALS: O2SAT 95
[2022-12-19 07:38] LABS: BASOPHILS % (AUTO) 0.1 % (0.0-2.0); EOSINOPHILS % (AUTO) 0.3 % (0.0-6.0); HEMATOCRIT 39 % (33-45); HEMOGLOBIN 12.2 g/dL (11.5-14.8); LYMPHOCYTES # (AUTO) 1.7 K/uL (0.8-4.8); LYMPHOCYTES % (AUTO) 10.5 % (20.0-44.0); MEAN CORPUSCULAR HGB CONC 32 g/dl (31.0-36.0); MEAN CORPUSCULAR VOLUME 81 fL (82-100); MONOCYTES # (AUTO) 1.3 K/uL (0.1-1.30); MONOCYTES % (AUTO) 8.4 % (2.0-12.0); NEUTROPHILS # (AUTO) 12.7 K/uL (1.8-8.9); NEUTROPHILS % (AUTO) 80.7 % (43.0-81.0); PLATELET COUNT (AUTO) 293 K/uL (150-450); RED BLOOD CELL COUNT(AUTO) 4.76 MIL/uL (4.0-5.2); WHITE BLOOD COUNT (AUTO) 15.8 K/uL (4.3-11.0)
--- NOTE | 2022-12-19 07:39 | NUR ---
TANKMAN OPENING NOTE PT RECEIVED IN BED RESTING COMFORTABLY. ALERT AND ORIENTED X4. ON N/C 2L. BREATHING EVEN AND UNLABORED WITH NO S/S OF SOB OR RESPIRATORY DISTRESS. ON TEXTILES SALES REPRESENTATIVE. IV ACCESS ON THE RIGHT HAND G22 INTACT, PATENT AND SALINE LOCKED. SAFETY MEASURES IN PLACE WITH HOB ELEVATED, SIDE RAILS UP X2, BED IN LOWEST LOCKED POSITION, BED ALARM ON, CALL LIGHT WITHIN REACH. WILL CONTINUE TO MONITOR.
[2022-12-19 07:45] VITALS: O2SAT 99
[2022-12-19] MEDS: BUDESONIDE RESPULE INH 0.5 MG/2 ML AMPUL.NEB NEB SCH ×2 (07:55→14:38)
[2022-12-19 08:07] LABS: CALCIUM, SERUM 9.3 mg/dL (8.5-10.1); CARBON DIOXIDE 31 mmol/L (21-32); CHLORIDE 101 mmol/L (98-107); CREATININE 0.5 mg/dL (0.6-1.3); GLUCOSE 118 mg/dL (74-106); MAGNESIUM 2.1 mg/dL (1.8-2.4); PHOSPHORUS 3.5 mg/dL (2.5-4.9); POTASSIUM 3.8 mmol/L (3.5-5.1); SODIUM SERUM 139 mmol/L (136-145); UREA NITROGEN, BLOOD 18 mg/dL (7-18)
[2022-12-19] MEDS: PANTOPRAZOLE 40 MG TABLET.DR PO SCH (08:29)
[2022-12-19] MEDS: MULTIVIT W/MINERALS 1 TAB TABLET PO SCH ×2 (08:29→08:47)
[2022-12-19] MEDS: predniSONE 20 MG TABLET PO SCH (08:29)
[2022-12-19] MEDS: METFORMIN 500 MG TABLET PO SCH (08:30)
[2022-12-19] MEDS: LEVOTHYROXINE SODIUM 50 MCG TABLET PO SCH (08:30)
[2022-12-19] MEDS: ASPIRIN EC 81 MG TABLET.DR PO SCH ×2 (08:30→08:47)
[2022-12-19] MEDS: FLUTICASONE PROPIONATE 16 GM BOTTLE NS SCH (08:34)
[2022-12-19] MEDS: DOXAZOSIN MESYLATE (1 MG) 1 MG TABLET PO SCH (08:41)
[2022-12-19] MEDS: VALSARTAN 80 MG TABLET PO SCH (08:41)
[2022-12-19] MEDS: AMLODIPINE BESYLATE 5 MG TABLET PO SCH (08:42)
--- NOTE | 2022-12-19 08:57 | NUR ---
PATIENT REFUSED HER ASPIRIN AND MULTVITAMIN. PATIENT STATED THAT SHE CANNOT TAKE ASPIRIN DUE TO HAVING AN ULCER.
[2022-12-19 12:00] VITALS: BP 138/70; TEMP 98.6; O2SAT 100
[2022-12-19] MEDS ORDERED: [UNRECOGNIZED DRUG - REMARK] (12:26)
[2022-12-19] MEDS ORDERED: PRED20TA PO (12:26)
[2022-12-19 13:10] VITALS: O2SAT 96
[2022-12-19 13:30] VITALS: O2SAT 99
--- NOTE | 2022-12-19 15:40 | NUR ---
PATIENT DISCHARGED IN STABLE CONDITION.
== END 2022-12-19 15:32 | disposition home health service (06) | DRG 291 ==
LOC: ER 12:20 → MEDSG1 17:16 → TELE1 12-17 00:17
PROVIDERS: ADMIT Nurse Practitioner Family; ATTEND Nurse Practitioner Family
DX: I11.0 Hypertensive heart disease with heart failure (principal); I50.33 Acute on chronic diastolic (congestive) heart failure; J96.01 Acute respiratory failure with hypoxia; J45.901 Unspecified asthma with (acute) exacerbation; E44.1 Mild protein-calorie malnutrition; D68.59 Other primary thrombophilia; J98.11 Atelectasis; E78.5 Hyperlipidemia, unspecified; E87.6 Hypokalemia; E03.9 Hypothyroidism, unspecified; E11.9 Type 2 diabetes mellitus without complications; I70.0 Atherosclerosis of aorta; I48.91 Unspecified atrial fibrillation; M19.012 Primary osteoarthritis, left shoulder; E88.09 Other disorders of plasma-protein metabolism, not elsewhere classified; Z79.01 Long term (current) use of anticoagulants; Z79.51 Long term (current) use of inhaled steroids; Z79.84 Long term (current) use of oral hypoglycemic drugs; Z87.891 Personal history of nicotine dependence; Z88.1 Allergy status to other antibiotic agents; Z90.710 Acquired absence of both cervix and uterus; Z79.899 Other long term (current) drug therapy; Z90.49 Acquired absence of other specified parts of digestive tract; Z88.8 Allergy status to other drugs, medicaments and biological substances; I35.1 Nonrheumatic aortic (valve) insufficiency
CPT/HCPCS: 36415; 36600; 71045-TC; 80048-TC; 80053-TC; 80061-TC; 80076-TC; 82962-TC; 83735-TC; 83880; 84100-TC; 84484-TC; 85025-TC; 87081-TC; 93307-TC; 94799-TC; G0378; J1815; J1940; J2930

== ENCOUNTER 2023-03-05 12:46 | Inpatient (IN) | payer MEDICARE, OTHER ==
[~2023-03-05] VITALS: Ht 152.4 cm; Wt 70.3 kg
[~2023-03-05 12:46] MED LIST changes: -ALBU18HF2 IH; +BLOO-668 IN; +BUDE10.2 IH; -FLUT1DIS3 IH; +FURO-145 PO; +LEVA15HF4 IH; +METH4TAB17 PO; -NITR100C6 PO; +PRED20TA PO; +VALS160T2 PO; -VALS320T16 PO; +[UNRECOGNIZED DRUG - REMARK]
[2023-03-05] MEDS ORDERED: LORAZEPAM INJ 2 MG/ML VIAL IV ONE (13:30)
[2023-03-05 16:03] LABS: CALCIUM, SERUM 9.1 mg/dL (8.5-10.1); CARBON DIOXIDE 29 mmol/L (21-32); CHLORIDE 91 mmol/L (98-107); CREATININE 0.4 mg/dL (0.6-1.3); GLUCOSE 104 mg/dL (74-106); POTASSIUM 3.3 mmol/L (3.5-5.1); SODIUM SERUM 128 mmol/L (136-145); UREA NITROGEN, BLOOD 9 mg/dL (7-18)
[2023-03-05 16:09] LABS: ALANINE AMINOTRANSFERASE 38 U/L (12-78); ALKALINE PHOSPHATASE 108 U/L (46-116); ASPARTATE AMINOTRANSFERASE 30 U/L (15-37); BILIRUBIN,DIRECT 0.3 mg/dL (0.0-0.2); TOTAL PROTEIN, SERUM 6.7 g/dL (6.4-8.2)
[2023-03-05 16:15] LABS: THYROID STIMULATING HORMONE 1.774 uIU/mL (0.358-3.74)
[2023-03-05] MEDS ORDERED: IV PREMIX D5 1/2NS + KCL 1,000 ML IV ONE (16:30)
[2023-03-05 16:36] LABS: BASOPHILS # (AUTO) 0.1 K/uL (0.0-0.2); EOSINOPHILS # (AUTO) 0.2 K/uL (0.0-0.7); EOSINOPHILS % (AUTO) 1.7 % (0.0-6.0); HEMATOCRIT 39 % (33-45); HEMOGLOBIN 12.6 g/dL (11.5-14.8); LYMPHOCYTES # (AUTO) 1.7 K/uL (0.8-4.8); LYMPHOCYTES % (AUTO) 15.1 % (20.0-44.0); MEAN CORPUSCULAR HEMOGLOBIN 26 PG (26.0-33.0); MEAN CORPUSCULAR HGB CONC 32 g/dl (31.0-36.0); MEAN CORPUSCULAR VOLUME 81 fL (82-100); MONOCYTES # (AUTO) 1.3 K/uL (0.1-1.30); MONOCYTES % (AUTO) 11.7 % (2.0-12.0); NEUTROPHILS # (AUTO) 7.9 K/uL (1.8-8.9); NEUTROPHILS % (AUTO) 70.5 % (43.0-81.0); PLATELET COUNT (AUTO) 281 K/uL (150-450); RED BLOOD CELL COUNT(AUTO) 4.85 MIL/uL (4.0-5.2); RED CELL DISTRIBUTION WIDTH 16.6 % (11.5-15.0); WHITE BLOOD COUNT (AUTO) 11.3 K/uL (4.3-11.0)
[2023-03-05 17:27] LABS: APPEARANCE,URINE CLEAR (CLEAR); BILIRUBIN,URINE NEGATIVE (NEGATIVE); BLOOD, URINE TRACE-INTA Ery/uL (NEGATIVE); COLOR,URINE YELLOW (YELLOW); KETONES,URINE NEGATIVE (NEGATIVE); LEUKOCYTE ESTERASE ,URINE NEGATIVE (NEGATIVE); NITRITE, URINE NEGATIVE (NEGATIVE); PROTEIN,URINE NEGATIVE (NEGATIVE); UGLUCOSE NEGATIVE (NEGATIVE); UROBILINOGEN,URINE 0.2 EU/dL (0.2)
[2023-03-05] MEDS ORDERED: MAGNESIUM HYDROXIDE 30 ML UDC PO PRN (18:00)
[2023-03-05] MEDS ORDERED: ACETAMINOPHEN 325 MG TABLET PO PRN (18:00)
[2023-03-05] MEDS ORDERED: ONDANSETRON HCL/PF 4 MG/2 ML VIAL IVP PRN (18:00)
[2023-03-05] MEDS ORDERED: Z GUARD REMEDY 4 OZ OINT TP PRN (18:00)
[2023-03-05] MEDS ORDERED: MAG HYDROX/AL HYDROX/SIMETH 30 ML UDC PO PRN (18:00)
[2023-03-05] MEDS ORDERED: IV NS 0.9% 1,000 ML IV PRN (18:00)
[2023-03-05] MEDS ORDERED: ENOXAPARIN SODIUM 30 MG/0.3 ML DISP.SYRIN SQ SCH (18:00)
[2023-03-05 18:04] VITALS: O2SAT 96
[2023-03-05 18:18] LABS: ADD URINE CULTURE NO; BACTERIA,URINE None seen /HPF (None Seen); WBC,URINE 0-2 /HPF (0-3)
[2023-03-05 23:01] VITALS: BP 139/95; TEMP 99; O2SAT 98
[2023-03-06 06:55] LABS: CALCIUM, SERUM 9.2 mg/dL (8.5-10.1); CARBON DIOXIDE 29 mmol/L (21-32); CHLORIDE 96 mmol/L (98-107); CREATININE 0.4 mg/dL (0.6-1.3); GLUCOSE 103 mg/dL (74-106); MAGNESIUM 2.1 mg/dL (1.8-2.4); PHOSPHORUS 3.7 mg/dL (2.5-4.9); POTASSIUM 3.6 mmol/L (3.5-5.1); SODIUM SERUM 131 mmol/L (136-145); UREA NITROGEN, BLOOD 9 mg/dL (7-18)
[2023-03-06 06:59] LABS: BASOPHILS # (AUTO) 0.2 K/uL (0.0-0.2); BASOPHILS % (AUTO) 1.3 % (0.0-2.0); EOSINOPHILS # (AUTO) 0.2 K/uL (0.0-0.7); EOSINOPHILS % (AUTO) 1.5 % (0.0-6.0); HEMATOCRIT 39 % (33-45); HEMOGLOBIN 12.5 g/dL (11.5-14.8); LYMPHOCYTES # (AUTO) 1.3 K/uL (0.8-4.8); LYMPHOCYTES % (AUTO) 10.5 % (20.0-44.0); MEAN CORPUSCULAR HEMOGLOBIN 26 PG (26.0-33.0); MEAN CORPUSCULAR HGB CONC 32 g/dl (31.0-36.0); MEAN CORPUSCULAR VOLUME 81 fL (82-100); MONOCYTES # (AUTO) 1.6 K/uL (0.1-1.30); MONOCYTES % (AUTO) 12.1 % (2.0-12.0); NEUTROPHILS # (AUTO) 9.6 K/uL (1.8-8.9); NEUTROPHILS % (AUTO) 74.6 % (43.0-81.0); PLATELET COUNT (AUTO) 311 K/uL (150-450); RED BLOOD CELL COUNT(AUTO) 4.79 MIL/uL (4.0-5.2); RED CELL DISTRIBUTION WIDTH 16.8 % (11.5-15.0); WHITE BLOOD COUNT (AUTO) 12.9 K/uL (4.3-11.0)
[2023-03-06 08:00] VITALS: BP 147/94; TEMP 98.6; O2SAT 94
[2023-03-06] MEDS ORDERED: ACETAMINOPHEN ES 500 MG TABLET PO PRN (10:30)
[2023-03-06] MEDS: LOSARTAN POTASSIUM 50 MG TABLET PO SCH (12:14)
[2023-03-06] MEDS: FLUTICASONE/VILANTEROL 1 EACH BLST.W.DEV IH SCH (12:57)
[2023-03-06] MEDS ORDERED: RIVAROXABAN 10 MG TABLET PO SCH (13:00)
[2023-03-06] MEDS: RIVAROXABAN 10 MG TABLET PO SCH ×3 (13:22→18:37)
[2023-03-06 16:00] VITALS: BP 152/98; TEMP 97.7; O2SAT 94
[2023-03-06 20:00] VITALS: BP_SYST 142; BP_SYST 177; BP_DIAS 86; BP_DIAS 92; TEMP 97.9; O2SAT 92
[2023-03-07 07:08] LABS: CALCIUM, SERUM 9.2 mg/dL (8.5-10.1); CARBON DIOXIDE 27 mmol/L (21-32); CHLORIDE 97 mmol/L (98-107); CREATININE 0.4 mg/dL (0.6-1.3); GLUCOSE 118 mg/dL (74-106); POTASSIUM 3.7 mmol/L (3.5-5.1); SODIUM SERUM 130 mmol/L (136-145); UREA NITROGEN, BLOOD 7 mg/dL (7-18)
[2023-03-07 08:00] VITALS: BP 166/100; TEMP 97.7; O2SAT 96
[2023-03-07] MEDS: FLUTICASONE PROPIONATE 16 GM BOTTLE NS SCH (08:45)
[2023-03-07] MEDS: FLUTICASONE/VILANTEROL 1 EACH BLST.W.DEV IH SCH (08:45)
[2023-03-07] MEDS: AMLODIPINE BESYLATE 5 MG TABLET PO SCH (08:46)
[2023-03-07] MEDS: ASPIRIN EC 81 MG TABLET.DR PO SCH (08:46)
[2023-03-07] MEDS: LEVOTHYROXINE SODIUM 50 MCG TABLET PO SCH (08:46)
[2023-03-07] MEDS: LOSARTAN POTASSIUM 50 MG TABLET PO SCH (08:47)
[2023-03-07 09:10] LABS: BASOPHILS # (AUTO) 0.2 K/uL (0.0-0.2); BASOPHILS % (AUTO) 1.2 % (0.0-2.0); EOSINOPHILS # (AUTO) 0.2 K/uL (0.0-0.7); EOSINOPHILS % (AUTO) 1.2 % (0.0-6.0); HEMATOCRIT 43 % (33-45); HEMOGLOBIN 14.2 g/dL (11.5-14.8); LYMPHOCYTES # (AUTO) 1.2 K/uL (0.8-4.8); LYMPHOCYTES % (AUTO) 8.8 % (20.0-44.0); MEAN CORPUSCULAR HEMOGLOBIN 27 PG (26.0-33.0); MEAN CORPUSCULAR HGB CONC 33 g/dl (31.0-36.0); MEAN CORPUSCULAR VOLUME 80 fL (82-100); MONOCYTES # (AUTO) 1.2 K/uL (0.1-1.30); MONOCYTES % (AUTO) 8.3 % (2.0-12.0); NEUTROPHILS # (AUTO) 11.4 K/uL (1.8-8.9); NEUTROPHILS % (AUTO) 80.5 % (43.0-81.0); PLATELET COUNT (AUTO) 348 K/uL (150-450); RED BLOOD CELL COUNT(AUTO) 5.34 MIL/uL (4.0-5.2); RED CELL DISTRIBUTION WIDTH 17.3 % (11.5-15.0); WHITE BLOOD COUNT (AUTO) 14.2 K/uL (4.3-11.0)
[2023-03-07] MEDS: PROSOURCE / PROSTAT (PYXIS) 30 ML UDC PO SCH ×2 (12:40→17:00)
[2023-03-07 16:00] VITALS: BP 154/96; TEMP 97.9; O2SAT 96
[2023-03-07] MEDS: RIVAROXABAN 10 MG TABLET PO SCH (17:26)
[2023-03-07 20:00] VITALS: BP 138/78; TEMP 98.2; O2SAT 96
[2023-03-08 08:00] VITALS: BP 160/98; TEMP 98.6; O2SAT 94
[2023-03-08] MEDS: ASPIRIN EC 81 MG TABLET.DR PO SCH ×2 (09:00→09:12)
[2023-03-08 09:12] VITALS: BP 160/98
[2023-03-08] MEDS: LOSARTAN POTASSIUM 50 MG TABLET PO SCH (09:12)
[2023-03-08] MEDS: AMLODIPINE BESYLATE 5 MG TABLET PO SCH (09:12)
[2023-03-08] MEDS: PROSOURCE / PROSTAT (PYXIS) 30 ML UDC PO SCH ×2 (09:13→13:09)
[2023-03-08] MEDS: FLUTICASONE PROPIONATE 16 GM BOTTLE NS SCH (09:18)
[2023-03-08] MEDS: LEVOTHYROXINE SODIUM 50 MCG TABLET PO SCH (09:18)
[2023-03-08] MEDS: FLUTICASONE/VILANTEROL 1 EACH BLST.W.DEV IH SCH (09:18)
== END 2023-03-08 14:30 | DRG 645 ==
LOC: ER 12:46 → TELE 22:08 → MED 23:04 → TELE 03-07 11:24 → MED 03-07 19:13
PROVIDERS: ADMIT Internal Medicine; ATTEND Internal Medicine
DX: E22.2 Syndrome of inappropriate secretion of antidiuretic hormone (principal); I48.91 Unspecified atrial fibrillation; E86.0 Dehydration; I87.2 Venous insufficiency (chronic) (peripheral); E11.9 Type 2 diabetes mellitus without complications; E03.9 Hypothyroidism, unspecified; E78.5 Hyperlipidemia, unspecified; E86.1 Hypovolemia; E87.6 Hypokalemia; I10 Essential (primary) hypertension; J45.909 Unspecified asthma, uncomplicated; Z79.01 Long term (current) use of anticoagulants; R53.1 Weakness; R60.0 Localized edema; R29.6 Repeated falls; W18.2XXA Fall in (into) shower or empty bathtub, initial encounter; Z20.822 Contact with and (suspected) exposure to COVID-19; Y93.9 Activity, unspecified; Y92.89 Other specified places as the place of occurrence of the external cause
CPT/HCPCS: 36415; 70450-TC; 71045-TC; 72125-TC; 72131-TC; 80048-TC; 80076-TC; 81001; 83735-TC; 84100-TC; 84443-TC; 85025-TC; 97116-TC; 97530-TC; G0378; J1650; J3490

== ENCOUNTER 2023-06-12 12:54 | Emergency (ER) | payer MEDICARE, OTHER ==
[~2023-06-12] VITALS: Ht 154.9 cm; Wt 58.5 kg
[~2023-06-12 12:54] MED LIST changes: -BLOO-668 IN; -CRAN425C6 PO; -DOXA1TAB4 PO; -ESOM20CA37 PO; -METF-440 PO; -METH4TAB17 PO; -MONT10TA22 PO; -PRED20TA PO; -[UNRECOGNIZED DRUG - REMARK]
[2023-06-12 15:03] LABS: BASOPHILS # (AUTO) 0.1 K/uL (0.0-0.2); EOSINOPHILS # (AUTO) 0.2 K/uL (0.0-0.7); EOSINOPHILS % (AUTO) 1.6 % (0.0-6.0); HEMATOCRIT 39 % (33-45); HEMOGLOBIN 12.7 g/dL (11.5-14.8); LYMPHOCYTES # (AUTO) 2.1 K/uL (0.8-4.8); LYMPHOCYTES % (AUTO) 14.4 % (20.0-44.0); MEAN CORPUSCULAR HEMOGLOBIN 28 PG (26.0-33.0); MEAN CORPUSCULAR HGB CONC 33 g/dl (31.0-36.0); MEAN CORPUSCULAR VOLUME 85 fL (82-100); MONOCYTES # (AUTO) 1.4 K/uL (0.1-1.30); MONOCYTES % (AUTO) 9.9 % (2.0-12.0); NEUTROPHILS # (AUTO) 10.5 K/uL (1.8-8.9); NEUTROPHILS % (AUTO) 73.1 % (43.0-81.0); PLATELET COUNT (AUTO) 302 K/uL (150-450); RED BLOOD CELL COUNT(AUTO) 4.56 MIL/uL (4.0-5.2); RED CELL DISTRIBUTION WIDTH 17.1 % (11.5-15.0); WHITE BLOOD COUNT (AUTO) 14.3 K/uL (4.3-11.0)
[2023-06-12 15:36] LABS: INR 0.98 (0.91-1.10); PARTIAL THROMBOPLASTIN TIME 25.5 SEC (24.3-34.3); PROTHROMBIN TIME 10.4 SECS (9.2-11.1)
[2023-06-12 15:38] LABS: CALCIUM, SERUM 9.4 mg/dL (8.5-10.1); CARBON DIOXIDE 27 mmol/L (21-32); CHLORIDE 102 mmol/L (98-107); CREATININE 0.6 mg/dL (0.6-1.3); GLUCOSE 81 mg/dL (74-106); POTASSIUM 3.1 mmol/L (3.5-5.1); SODIUM SERUM 138 mmol/L (136-145); UREA NITROGEN, BLOOD 25 mg/dL (7-18)
[2023-06-12 15:45] LABS: LACTIC ACID 1.3 mmol/L (0.4-2.0)
[2023-06-12 15:48] LABS: APPEARANCE,URINE SLIGHTLY CLOUDY (CLEAR); BILIRUBIN,URINE NEGATIVE (NEGATIVE); BLOOD, URINE TRACE-INTA Ery/uL (NEGATIVE); COLOR,URINE YELLOW (YELLOW); KETONES,URINE NEGATIVE (NEGATIVE); LEUKOCYTE ESTERASE ,URINE TRACE (NEGATIVE); NITRITE, URINE POSITIVE (NEGATIVE); PROTEIN,URINE NEGATIVE (NEGATIVE); UGLUCOSE NEGATIVE (NEGATIVE); UROBILINOGEN,URINE 0.2 EU/dL (0.2)
[2023-06-12 15:52] LABS: ALANINE AMINOTRANSFERASE 21 U/L (12-78); ALBUMIN 3.4 g/dL (3.4-5.0); ALKALINE PHOSPHATASE 84 U/L (46-116); ASPARTATE AMINOTRANSFERASE 19 U/L (15-37); BILIRUBIN,DIRECT 0.2 mg/dL (0.0-0.2); BILIRUBIN,TOTAL 1.2 mg/dL (0.2-1.0); TOTAL PROTEIN, SERUM 7.4 g/dL (6.4-8.2)
[2023-06-12 16:36] LABS: ADD URINE CULTURE YES; BACTERIA,URINE 2+ /HPF (None Seen); SQUAMOUS EPITHELIAL CELL,UR 0-2 /HPF (None Seen); URIC ACID CRYSTALS,URINE Many /HPF (None Seen)
[2023-06-12] MEDS ORDERED: SULF1TAB48 PO (17:03)
[2023-06-12 18:14] VITALS: BP 142/63; TEMP 98.4; O2SAT 95
== END 2023-06-12 18:20 | disposition hospice, inpatient (51) ==
LOC: ER 12:56
DX: N39.0 Urinary tract infection, site not specified (principal); I10 Essential (primary) hypertension; I48.91 Unspecified atrial fibrillation; E78.5 Hyperlipidemia, unspecified; E11.9 Type 2 diabetes mellitus without complications; E03.9 Hypothyroidism, unspecified; Z88.8 Allergy status to other drugs, medicaments and biological substances; Z79.82 Long term (current) use of aspirin; Z79.899 Other long term (current) drug therapy
CPT/HCPCS: 36415; 71045-TC; 80048-TC; 80076-TC; 81001; 83605-TC; 84484-TC; 85025-TC; 85730-TC; 87040-TC; 87086-TC

== ENCOUNTER 2023-06-24 23:41 | Emergency (ER) | payer MEDICARE, OTHER ==
[~2023-06-24] VITALS: Ht 167.6 cm; Wt 63.5 kg
[~2023-06-24 23:41] MED LIST changes: +SULF1TAB48 PO
[2023-06-25 01:47] VITALS: BP 140/67; TEMP 97.9; O2SAT 96
== END 2023-06-25 02:29 | disposition home or self-care (01) ==
LOC: ER 23:51
DX: L89.159 Pressure ulcer of sacral region, unspecified stage (principal); I48.91 Unspecified atrial fibrillation; I10 Essential (primary) hypertension; E78.5 Hyperlipidemia, unspecified; E11.9 Type 2 diabetes mellitus without complications; E03.9 Hypothyroidism, unspecified; Z79.82 Long term (current) use of aspirin; Z79.899 Other long term (current) drug therapy; Z88.1 Allergy status to other antibiotic agents

== ENCOUNTER 2023-07-07 14:02 | Inpatient (IN) | payer MEDICARE, OTHER ==
[~2023-07-07] VITALS: Ht 165.1 cm; Wt 55.8 kg
[2023-07-07 16:08] LABS: BASOPHILS # (AUTO) 0.1 K/uL (0.0-0.2); BASOPHILS % (AUTO) 1.2 % (0.0-2.0); EOSINOPHILS # (AUTO) 0.1 K/uL (0.0-0.7); EOSINOPHILS % (AUTO) 1.5 % (0.0-6.0); HEMATOCRIT 35 % (33-45); HEMOGLOBIN 11.9 g/dL (11.5-14.8); LYMPHOCYTES # (AUTO) 1.6 K/uL (0.8-4.8); MEAN CORPUSCULAR HEMOGLOBIN 29 PG (26.0-33.0); MEAN CORPUSCULAR HGB CONC 34 g/dl (31.0-36.0); MEAN CORPUSCULAR VOLUME 87 fL (82-100); MONOCYTES % (AUTO) 9.7 % (2.0-12.0); NEUTROPHILS # (AUTO) 7.2 K/uL (1.8-8.9); NEUTROPHILS % (AUTO) 71.6 % (43.0-81.0); PLATELET COUNT (AUTO) 279 K/uL (150-450); RED BLOOD CELL COUNT(AUTO) 4.07 MIL/uL (4.0-5.2); RED CELL DISTRIBUTION WIDTH 15.6 % (11.5-15.0); WHITE BLOOD COUNT (AUTO) 10.1 K/uL (4.3-11.0)
[2023-07-07 16:22] LABS: CALCIUM, SERUM 9.2 mg/dL (8.5-10.1); CARBON DIOXIDE 28 mmol/L (21-32); CHLORIDE 103 mmol/L (98-107); CREATININE 0.6 mg/dL (0.6-1.3); GLUCOSE 97 mg/dL (74-106); POTASSIUM 3.1 mmol/L (3.5-5.1); SODIUM SERUM 143 mmol/L (136-145); UREA NITROGEN, BLOOD 25 mg/dL (7-18)
[2023-07-07] MEDS ORDERED: ONDA4TAB11 SL (16:22)
[2023-07-07] MEDS ORDERED: MAGN400O6 PO (16:22)
[2023-07-07] MEDS ORDERED: HYDR-4303 PO (16:22)
[2023-07-07] MEDS ORDERED: RIVA15TA PO (16:22)
[2023-07-07] MEDS ORDERED: POTA8TAB3 PO (16:22)
[2023-07-07] MEDS ORDERED: ASCO-495 PO (16:22)
[2023-07-07] MEDS ORDERED: AMIN30LI2 PO (16:22)
[2023-07-07] MEDS ORDERED: CLON0.1T PO (16:22)
[2023-07-07] MEDS ORDERED: CRAN200C PO (16:22)
[2023-07-07] MEDS ORDERED: CHOL100043 PO (16:22)
[2023-07-07] MEDS ORDERED: PANT40TA49 PO (16:22)
[2023-07-07] MEDS ORDERED: MULT-447 PO (16:22)
[2023-07-07] MEDS ORDERED: METF-440 PO (16:22)
[2023-07-07] MEDS ORDERED: FOLI0.4T6 PO (16:22)
[2023-07-07] MEDS ORDERED: MELA3TAB41 PO (16:22)
[2023-07-07] MEDS ORDERED: DOCU100C36 PO (16:22)
[2023-07-07] MEDS ORDERED: FLUT1BLS13 IH (16:22)
[2023-07-07] MEDS ORDERED: [UNRECOGNIZED DRUG - OTHER] TP (16:22)
[2023-07-07] MEDS ORDERED: LOSA100T31 PO (16:22)
[2023-07-07 16:34] LABS: ALANINE AMINOTRANSFERASE 67 U/L (12-78); ALBUMIN 3.6 g/dL (3.4-5.0); ALCOHOL, BLOOD < 3 mg/dL (0-10); ALKALINE PHOSPHATASE 94 U/L (46-116); ASPARTATE AMINOTRANSFERASE 24 U/L (15-37); BILIRUBIN,DIRECT 0.3 mg/dL (0.0-0.2); BILIRUBIN,TOTAL 1.8 mg/dL (0.2-1.0); TOTAL PROTEIN, SERUM 7.2 g/dL (6.4-8.2)
[2023-07-07 16:35] LABS: ACETAMINOPHEN <10 ug/ml (10-30); SALICYLATE < 0.2 mg/dL (2.8-20.0)
[2023-07-07] MEDS ORDERED: WATER FOR INJECTION,STERILE 10 ML ONE (17:26)
[2023-07-07] MEDS ORDERED: OLANZAPINE 10 MG VIAL IM ONE (17:26)
[2023-07-07] MEDS: OLANZAPINE 10 MG VIAL IM ONE (17:28)
[2023-07-07 18:30] LABS: APPEARANCE,URINE SLIGHTLY CLOUDY (CLEAR); BILIRUBIN,URINE NEGATIVE (NEGATIVE); BLOOD, URINE 1+ Ery/uL (NEGATIVE); COLOR,URINE YELLOW (YELLOW); KETONES,URINE 3+ mg/dL (NEGATIVE); LEUKOCYTE ESTERASE ,URINE 1+ (NEGATIVE); NITRITE, URINE POSITIVE (NEGATIVE); PH,URINE 5.5 (5.0-8.0); PROTEIN,URINE 2+ mg/dl (NEGATIVE); UGLUCOSE NEGATIVE (NEGATIVE); UROBILINOGEN,URINE 0.2 EU/dL (0.2)
[2023-07-07 18:50] LABS: PHENCYCLIDINE SCREEN,URINE NEGATIVE (NEGATIVE)
[2023-07-07] MEDS: CEFTRIAXONE 1 G in IV D5W 50 ML IV SCH (19:00)
[2023-07-07 19:04] LABS: AMPHETAMINE, URINE NEGATIVE (NEGATIVE); BARBITURATE, URINE NEGATIVE (NEGATIVE); BENZODIAZEPINE, URINE NEGATIVE (NEGATIVE); CANNABINOID, URINE NEGATIVE (NEGATIVE); COCCAINE, URINE NEGATIVE (NEGATIVE); OPIATE, URINE NEGATIVE (NEGATIVE)
[2023-07-07] MEDS: CEFTRIAXONE 1GM BAG (ER ONLY) 1 GM/50 ML PIGGYBACK IV ONE (19:15)
[2023-07-07] MEDS ORDERED: CEFTRIAXONE 1 G VIAL ONE (19:27)
[2023-07-07 19:30] LABS: ADD URINE CULTURE YES; BACTERIA,URINE 2+ /HPF (None Seen); MUCUS,URINE Few /LPF (None Seen); RBC,URINE 21-50 /HPF (0-2); WBC,URINE 21-50 /HPF (0-3)
[2023-07-07] MEDS ORDERED: ONDANSETRON HCL/PF 4 MG/2 ML VIAL IVP PRN (20:00)
[2023-07-07] MEDS ORDERED: DEXTROSE 50%-WATER 50 ML DISP.SYRIN IV PRN (20:00)
[2023-07-07] MEDS ORDERED: ALBUTEROL FS 2.5 MG/0.5 ML VIAL.NEB NEB PRN (20:00)
[2023-07-07] MEDS ORDERED: MORPHINE SULFATE INJ 2 MG/ML DISP.SYRIN IV PRN (20:00)
[2023-07-07 20:54] VITALS: BP 157/61; TEMP 97.7; O2SAT 99
[2023-07-07] MEDS: IV NS 0.9% 1,000 ML IV PRN (21:00)
[2023-07-07] MEDS: BLOOD SUGAR DIAGNOSTIC 1 EACH STRIP IN SCH (21:13)
[2023-07-07] MEDS: ATORVASTATIN 10 MG TABLET PO SCH (22:13)
[2023-07-07] MEDS: POTASSIUM CHLORIDE 20 MEQ TAB.PRT.SR PO SCH (23:20)
[2023-07-08] VITALS (9 sets, daily range): BP systolic 137–149; BP diastolic 71–100; TEMP 97.9; O2SAT 94–97
[2023-07-08] MEDS: ALBUTEROL FS 2.5 MG/0.5 ML VIAL.NEB NEB SCH (01:20)
[2023-07-08] MEDS: IPRATROPIUM NEB FS 0.5 MG/2.5 ML AMPUL.NEB IH SCH (01:20)
[2023-07-08 06:09] LABS: BASOPHILS # (AUTO) 0.1 K/uL (0.0-0.2); BASOPHILS % (AUTO) 1.5 % (0.0-2.0); EOSINOPHILS # (AUTO) 0.4 K/uL (0.0-0.7); EOSINOPHILS % (AUTO) 3.7 % (0.0-6.0); HEMATOCRIT 38 % (33-45); HEMOGLOBIN 11.6 g/dL (11.5-14.8); LYMPHOCYTES # (AUTO) 1.9 K/uL (0.8-4.8); LYMPHOCYTES % (AUTO) 19.4 % (20.0-44.0); MEAN CORPUSCULAR HEMOGLOBIN 29 PG (26.0-33.0); MEAN CORPUSCULAR HGB CONC 31 g/dl (31.0-36.0); MEAN CORPUSCULAR VOLUME 96 fL (82-100); MONOCYTES # (AUTO) 1.2 K/uL (0.1-1.30); MONOCYTES % (AUTO) 12.6 % (2.0-12.0); NEUTROPHILS % (AUTO) 62.8 % (43.0-81.0); PLATELET COUNT (AUTO) 227 K/uL (150-450); RED BLOOD CELL COUNT(AUTO) 3.95 MIL/uL (4.0-5.2); RED CELL DISTRIBUTION WIDTH 17.1 % (11.5-15.0); WHITE BLOOD COUNT (AUTO) 9.6 K/uL (4.3-11.0)
[2023-07-08 06:19] LABS: ALANINE AMINOTRANSFERASE 50 U/L (12-78); ALBUMIN 2.9 g/dL (3.4-5.0); ALKALINE PHOSPHATASE 87 U/L (46-116); ASPARTATE AMINOTRANSFERASE 23 U/L (15-37); BILIRUBIN,TOTAL 1.3 mg/dL (0.2-1.0); CALCIUM, SERUM 8.6 mg/dL (8.5-10.1); CARBON DIOXIDE 26 mmol/L (21-32); CHLORIDE 109 mmol/L (98-107); CREATININE 0.5 mg/dL (0.6-1.3); GLUCOSE 77 mg/dL (74-106); MAGNESIUM 1.6 mg/dL (1.8-2.4); PHOSPHORUS 4.2 mg/dL (2.5-4.9); POTASSIUM 3.5 mmol/L (3.5-5.1); SODIUM SERUM 145 mmol/L (136-145); UREA NITROGEN, BLOOD 19 mg/dL (7-18)
[2023-07-08] MEDS: PANTOPRAZOLE 40 MG TABLET.DR PO SCH (06:35)
[2023-07-08] MEDS: LEVOTHYROXINE SODIUM 50 MCG TABLET PO SCH (06:35)
[2023-07-08] MEDS ORDERED: ASCORBIC ACID 250 MG TABLET PO SCH (09:00)
[2023-07-08] MEDS: POLYETHYLENE GLYCOL 3350 17 GM POWD.PACK PO SCH (09:32)
[2023-07-08] MEDS: ASCORBIC ACID 500 MG TABLET PO SCH (09:33)
[2023-07-08] MEDS: ASPIRIN EC 81 MG TABLET.DR PO SCH (09:33)
[2023-07-08] MEDS: RIVAROXABAN 15 MG TABLET PO SCH (09:33)
[2023-07-08] MEDS: AMLODIPINE BESYLATE 5 MG TABLET PO SCH (09:34)
[2023-07-08] MEDS: DOCUSATE SODIUM LIQ 100 MG/10 ML UDC PO SCH (09:35)
[2023-07-08] MEDS: LOSARTAN POTASSIUM 50 MG TABLET PO SCH (09:35)
[2023-07-08] MEDS: MAGNESIUM OXIDE 400 MG TABLET PO ONE (11:04)
[2023-07-09] VITALS (10 sets, daily range): BP systolic 139–155; BP diastolic 60–68; TEMP 97.1–98; O2SAT 94–100
[2023-07-09] MEDS: INSULIN REGULAR, HUMAN 100 UNIT/ML 3 ML VIAL SQ PRN (06:42)
[2023-07-09 07:24] LABS: BASOPHILS # (AUTO) 0.2 K/uL (0.0-0.2); BASOPHILS % (AUTO) 1.8 % (0.0-2.0); EOSINOPHILS # (AUTO) 0.3 K/uL (0.0-0.7); HEMATOCRIT 38 % (33-45); LYMPHOCYTES # (AUTO) 1.5 K/uL (0.8-4.8); LYMPHOCYTES % (AUTO) 16.9 % (20.0-44.0); MEAN CORPUSCULAR HEMOGLOBIN 29 PG (26.0-33.0); MEAN CORPUSCULAR HGB CONC 32 g/dl (31.0-36.0); MEAN CORPUSCULAR VOLUME 91 fL (82-100); MONOCYTES # (AUTO) 0.8 K/uL (0.1-1.30); MONOCYTES % (AUTO) 8.5 % (2.0-12.0); NEUTROPHILS # (AUTO) 6.2 K/uL (1.8-8.9); NEUTROPHILS % (AUTO) 69.8 % (43.0-81.0); PLATELET COUNT (AUTO) 199 K/uL (150-450); RED BLOOD CELL COUNT(AUTO) 4.12 MIL/uL (4.0-5.2); RED CELL DISTRIBUTION WIDTH 16.6 % (11.5-15.0); WHITE BLOOD COUNT (AUTO) 8.9 K/uL (4.3-11.0)
[2023-07-09 07:59] LABS: CALCIUM, SERUM 8.3 mg/dL (8.5-10.1); CARBON DIOXIDE 22 mmol/L (21-32); CHLORIDE 106 mmol/L (98-107); CREATININE 0.3 mg/dL (0.6-1.3); GLUCOSE 82 mg/dL (74-106); MAGNESIUM 1.6 mg/dL (1.8-2.4); PHOSPHORUS 2.8 mg/dL (2.5-4.9); POTASSIUM 4.4 mmol/L (3.5-5.1); SODIUM SERUM 140 mmol/L (136-145); UREA NITROGEN, BLOOD 10 mg/dL (7-18)
[2023-07-09] MEDS: MUPIROCIN OINT 2% 22 GM TUBE NS SCH (10:30)
[2023-07-09] MEDS: MAGNESIUM OXIDE 400 MG TABLET PO ONE (10:54)
[2023-07-09] MEDS: hydrALAZINE HCL IV 20 MG VIAL IV PRN (15:19)
[2023-07-09] MEDS: Magnesium 1GM/D5W 100ML PREMIX 100 ML IV SCH (16:45)
[2023-07-09] MEDS: Potassium Chloride 20 MEQ in IV D5/0.45 NACL 1,000 ML IV SCH (16:53)
[2023-07-10] VITALS (10 sets, daily range): BP systolic 137–155; BP diastolic 64–87; TEMP 97.9–98; O2SAT 95–100
[2023-07-10 07:26] LABS: BASOPHILS # (AUTO) 0.1 K/uL (0.0-0.2); BASOPHILS % (AUTO) 0.7 % (0.0-2.0); EOSINOPHILS # (AUTO) 0.2 K/uL (0.0-0.7); EOSINOPHILS % (AUTO) 2.1 % (0.0-6.0); HEMATOCRIT 35 % (33-45); HEMOGLOBIN 11.5 g/dL (11.5-14.8); LYMPHOCYTES # (AUTO) 1.3 K/uL (0.8-4.8); LYMPHOCYTES % (AUTO) 10.8 % (20.0-44.0); MEAN CORPUSCULAR HEMOGLOBIN 29 PG (26.0-33.0); MEAN CORPUSCULAR HGB CONC 33 g/dl (31.0-36.0); MEAN CORPUSCULAR VOLUME 87 fL (82-100); MONOCYTES # (AUTO) 1.2 K/uL (0.1-1.30); MONOCYTES % (AUTO) 9.9 % (2.0-12.0); NEUTROPHILS # (AUTO) 9.2 K/uL (1.8-8.9); NEUTROPHILS % (AUTO) 76.5 % (43.0-81.0); PLATELET COUNT (AUTO) 253 K/uL (150-450); RED BLOOD CELL COUNT(AUTO) 4.02 MIL/uL (4.0-5.2); RED CELL DISTRIBUTION WIDTH 15.4 % (11.5-15.0)
[2023-07-10 07:43] LABS: CALCIUM, SERUM 8.7 mg/dL (8.5-10.1); CARBON DIOXIDE 27 mmol/L (21-32); CHLORIDE 102 mmol/L (98-107); CREATININE 0.5 mg/dL (0.6-1.3); GLUCOSE 130 mg/dL (74-106); MAGNESIUM 2.3 mg/dL (1.8-2.4); PHOSPHORUS 3.7 mg/dL (2.5-4.9); POTASSIUM 3.2 mmol/L (3.5-5.1); SODIUM SERUM 141 mmol/L (136-145); UREA NITROGEN, BLOOD 9 mg/dL (7-18)
[2023-07-10] MEDS ORDERED: Z GUARD REMEDY 4 OZ OINT TP PRN (08:30)
[2023-07-10] MEDS: Z GUARD REMEDY 4 OZ OINT TP SCH (09:34)
[2023-07-10] MEDS: GLUCERNA SHAKE 237 ML CAN PO SCH (09:34)
[2023-07-11] VITALS (9 sets, daily range): BP systolic 129–175; BP diastolic 67–89; TEMP 97.2–98.2; O2SAT 95–100
[2023-07-11 06:31] LABS: BASOPHILS # (AUTO) 0.1 K/uL (0.0-0.2); BASOPHILS % (AUTO) 1.1 % (0.0-2.0); EOSINOPHILS # (AUTO) 0.5 K/uL (0.0-0.7); EOSINOPHILS % (AUTO) 5.5 % (0.0-6.0); HEMATOCRIT 38 % (33-45); HEMOGLOBIN 12.7 g/dL (11.5-14.8); LYMPHOCYTES # (AUTO) 1.3 K/uL (0.8-4.8); MEAN CORPUSCULAR HEMOGLOBIN 29 PG (26.0-33.0); MEAN CORPUSCULAR HGB CONC 33 g/dl (31.0-36.0); MEAN CORPUSCULAR VOLUME 87 fL (82-100); MONOCYTES # (AUTO) 0.8 K/uL (0.1-1.30); NEUTROPHILS # (AUTO) 5.5 K/uL (1.8-8.9); NEUTROPHILS % (AUTO) 67.4 % (43.0-81.0); PLATELET COUNT (AUTO) 282 K/uL (150-450); RED BLOOD CELL COUNT(AUTO) 4.41 MIL/uL (4.0-5.2); RED CELL DISTRIBUTION WIDTH 15.7 % (11.5-15.0); WHITE BLOOD COUNT (AUTO) 8.2 K/uL (4.3-11.0)
[2023-07-11 07:11] LABS: CALCIUM, SERUM 9.3 mg/dL (8.5-10.1); CARBON DIOXIDE 26 mmol/L (21-32); CHLORIDE 105 mmol/L (98-107); CREATININE 0.3 mg/dL (0.6-1.3); GLUCOSE 126 mg/dL (74-106); MAGNESIUM 1.8 mg/dL (1.8-2.4); PHOSPHORUS 3.1 mg/dL (2.5-4.9); POTASSIUM 3.6 mmol/L (3.5-5.1); SODIUM SERUM 141 mmol/L (136-145); UREA NITROGEN, BLOOD 4 mg/dL (7-18)
[2023-07-11] MEDS: risperiDONE 0.25 MG TABLET PO SCH (21:00)
[2023-07-12] VITALS (12 sets, daily range): BP systolic 117–157; BP diastolic 81–99; TEMP 97.3–98.8; O2SAT 92–100
[2023-07-12 07:48] LABS: BASOPHILS # (AUTO) 0.1 K/uL (0.0-0.2); BASOPHILS % (AUTO) 1.1 % (0.0-2.0); EOSINOPHILS # (AUTO) 0.5 K/uL (0.0-0.7); EOSINOPHILS % (AUTO) 4.9 % (0.0-6.0); HEMATOCRIT 35 % (33-45); HEMOGLOBIN 11.7 g/dL (11.5-14.8); LYMPHOCYTES # (AUTO) 1.5 K/uL (0.8-4.8); LYMPHOCYTES % (AUTO) 14.3 % (20.0-44.0); MEAN CORPUSCULAR HEMOGLOBIN 29 PG (26.0-33.0); MEAN CORPUSCULAR HGB CONC 33 g/dl (31.0-36.0); MEAN CORPUSCULAR VOLUME 87 fL (82-100); MONOCYTES # (AUTO) 1.1 K/uL (0.1-1.30); NEUTROPHILS # (AUTO) 7.5 K/uL (1.8-8.9); NEUTROPHILS % (AUTO) 69.7 % (43.0-81.0); PLATELET COUNT (AUTO) 295 K/uL (150-450); RED BLOOD CELL COUNT(AUTO) 4.03 MIL/uL (4.0-5.2); RED CELL DISTRIBUTION WIDTH 15.6 % (11.5-15.0); WHITE BLOOD COUNT (AUTO) 10.7 K/uL (4.3-11.0)
[2023-07-12 08:33] LABS: CREATININE 0.6 mg/dL (0.6-1.3); MAGNESIUM 1.7 mg/dL (1.8-2.4); PHOSPHORUS 3.4 mg/dL (2.5-4.9); POTASSIUM 3.7 mmol/L (3.5-5.1)
[2023-07-12] MEDS: MAGNESIUM OXIDE 400 MG TABLET PO ONE (10:31)
[2023-07-12] MEDS ORDERED: Potassium Chloride 20 MEQ in IV D5/0.45 NACL 1,000 ML IV SCH (21:31)
[2023-07-13 01:28] VITALS: O2SAT 95
[2023-07-13 01:36] VITALS: O2SAT 99
[2023-07-13 04:00] VITALS: BP 137/73; TEMP 97.9; O2SAT 96
[2023-07-13 07:05] LABS: BASOPHILS # (AUTO) 0.1 K/uL (0.0-0.2); BASOPHILS % (AUTO) 0.9 % (0.0-2.0); EOSINOPHILS # (AUTO) 0.4 K/uL (0.0-0.7); HEMATOCRIT 31 % (33-45); HEMOGLOBIN 10.5 g/dL (11.5-14.8); LYMPHOCYTES # (AUTO) 1.4 K/uL (0.8-4.8); LYMPHOCYTES % (AUTO) 14.2 % (20.0-44.0); MEAN CORPUSCULAR HEMOGLOBIN 29 PG (26.0-33.0); MEAN CORPUSCULAR HGB CONC 34 g/dl (31.0-36.0); MEAN CORPUSCULAR VOLUME 88 fL (82-100); MONOCYTES # (AUTO) 1.2 K/uL (0.1-1.30); MONOCYTES % (AUTO) 11.8 % (2.0-12.0); NEUTROPHILS # (AUTO) 6.8 K/uL (1.8-8.9); NEUTROPHILS % (AUTO) 69.1 % (43.0-81.0); PLATELET COUNT (AUTO) 269 K/uL (150-450); RED BLOOD CELL COUNT(AUTO) 3.56 MIL/uL (4.0-5.2); RED CELL DISTRIBUTION WIDTH 15.5 % (11.5-15.0); WHITE BLOOD COUNT (AUTO) 9.9 K/uL (4.3-11.0)
[2023-07-13 07:23] LABS: CALCIUM, SERUM 8.8 mg/dL (8.5-10.1); CARBON DIOXIDE 24 mmol/L (21-32); CHLORIDE 108 mmol/L (98-107); CREATININE 0.5 mg/dL (0.6-1.3); GLUCOSE 126 mg/dL (74-106); POTASSIUM 3.9 mmol/L (3.5-5.1); SODIUM SERUM 141 mmol/L (136-145); UREA NITROGEN, BLOOD 11 mg/dL (7-18)
[2023-07-13 08:00] VITALS: BP 148/84; TEMP 97.5; O2SAT 95
[2023-07-13 16:00] VITALS: BP 122/90; TEMP 97.7; O2SAT 97
[2023-07-13] MEDS ORDERED: POTASSIUM CHLORIDE 20 MEQ TAB.PRT.SR PO STA (19:16)
[2023-07-13 20:00] VITALS: BP 164/84; TEMP 98.4; O2SAT 95
[2023-07-13] MEDS: ACETAMINOPHEN 325 MG TABLET PO PRN (21:27)
[2023-07-14 04:00] VITALS: BP 163/93; TEMP 97.8; O2SAT 99
[2023-07-14 07:13] LABS: BASOPHILS # (AUTO) 0.1 K/uL (0.0-0.2); BASOPHILS % (AUTO) 0.8 % (0.0-2.0); EOSINOPHILS # (AUTO) 0.2 K/uL (0.0-0.7); EOSINOPHILS % (AUTO) 2.5 % (0.0-6.0); HEMATOCRIT 33 % (33-45); HEMOGLOBIN 10.8 g/dL (11.5-14.8); LYMPHOCYTES # (AUTO) 1.1 K/uL (0.8-4.8); LYMPHOCYTES % (AUTO) 11.8 % (20.0-44.0); MEAN CORPUSCULAR HEMOGLOBIN 29 PG (26.0-33.0); MEAN CORPUSCULAR HGB CONC 33 g/dl (31.0-36.0); MEAN CORPUSCULAR VOLUME 89 fL (82-100); MONOCYTES % (AUTO) 9.9 % (2.0-12.0); NEUTROPHILS # (AUTO) 7.3 K/uL (1.8-8.9); PLATELET COUNT (AUTO) 267 K/uL (150-450); RED BLOOD CELL COUNT(AUTO) 3.75 MIL/uL (4.0-5.2); RED CELL DISTRIBUTION WIDTH 15.8 % (11.5-15.0); WHITE BLOOD COUNT (AUTO) 9.7 K/uL (4.3-11.0)
[2023-07-14 07:57] LABS: CALCIUM, SERUM 9.4 mg/dL (8.5-10.1); CARBON DIOXIDE 23 mmol/L (21-32); CHLORIDE 107 mmol/L (98-107); CREATININE 0.4 mg/dL (0.6-1.3); GLUCOSE 110 mg/dL (74-106); POTASSIUM 3.8 mmol/L (3.5-5.1); SODIUM SERUM 141 mmol/L (136-145); UREA NITROGEN, BLOOD 12 mg/dL (7-18)
[2023-07-14 08:00] VITALS: BP 127/79; TEMP 98.6; O2SAT 93
[2023-07-14 16:00] VITALS: BP 135/80; TEMP 98.1; O2SAT 99
[2023-07-14] MEDS: GLUCERNA SHAKE 237 ML CAN PO SCH (16:03)
[2023-07-14 20:00] VITALS: BP 145/87; TEMP 97.7; O2SAT 99
[2023-07-14 20:22] VITALS: O2SAT 95
[2023-07-14 20:37] VITALS: O2SAT 98
[2023-07-15 04:00] VITALS: BP 142/85; TEMP 98; O2SAT 98
[2023-07-15 08:00] VITALS: BP 141/91; TEMP 98.5
[2023-07-15] MEDS ORDERED: RISP0.2515 PO (11:27)
[2023-07-15] MEDS ORDERED: LEVO250T59 PO (11:27)
[2023-07-15] MEDS ORDERED: LEVOFLOXACIN (250MG) 250 MG TABLET PO SCH (11:30)
[2023-07-15 16:00] VITALS: BP 156/87; TEMP 98.1; O2SAT 96
[2023-07-15 20:00] VITALS: BP 141/97; TEMP 97.7; O2SAT 96
[2023-07-15 20:08] VITALS: O2SAT 95
[2023-07-15 20:23] VITALS: O2SAT 98
[2023-07-16] VITALS (12 sets, daily range): BP systolic 133–141; BP diastolic 78–97; TEMP 97.7–98.1; O2SAT 94–100
[2023-07-17] VITALS (12 sets, daily range): BP systolic 125–143; BP diastolic 69–88; TEMP 97.6–98.5; O2SAT 94–100
[2023-07-18] VITALS (9 sets, daily range): BP systolic 123–144; BP diastolic 62–85; TEMP 98.4–98.6; O2SAT 93–99
== END 2023-07-18 19:33 | DRG 871 ==
LOC: ER 14:06 → MEDSG1 20:12
PROVIDERS: ADMIT Internal Medicine; ATTEND Legal Medicine
PROC: 05HB33Z Insertion of Infusion Device into Right Basilic Vein, Percutaneous Approach (ICD-10-PCS; principal; 2023-07-14)
DX: A41.9 Sepsis, unspecified organism (principal); G92.8 Other toxic encephalopathy; N39.0 Urinary tract infection, site not specified; F03.92 Unspecified dementia, unspecified severity, with psychotic disturbance; I48.20 Chronic atrial fibrillation, unspecified; F05 Delirium due to known physiological condition; F03.911 Unspecified dementia, unspecified severity, with agitation; E86.0 Dehydration; E87.6 Hypokalemia; Z20.822 Contact with and (suspected) exposure to COVID-19; I10 Essential (primary) hypertension; E78.5 Hyperlipidemia, unspecified; E11.9 Type 2 diabetes mellitus without complications; E03.9 Hypothyroidism, unspecified; Z88.1 Allergy status to other antibiotic agents; Z88.8 Allergy status to other drugs, medicaments and biological substances; Z79.01 Long term (current) use of anticoagulants; Z79.51 Long term (current) use of inhaled steroids; Z79.84 Long term (current) use of oral hypoglycemic drugs; Z79.899 Other long term (current) drug therapy; Z79.890 Hormone replacement therapy; Z79.82 Long term (current) use of aspirin; Z90.710 Acquired absence of both cervix and uterus; Z90.49 Acquired absence of other specified parts of digestive tract; Z98.890 Other specified postprocedural states; L89.156 Pressure-induced deep tissue damage of sacral region; E80.6 Other disorders of bilirubin metabolism; B96.20 Unspecified Escherichia coli [E. coli] as the cause of diseases classified elsewhere
CPT/HCPCS: 36410; 36415; 70450-TC; 71045-TC; 72192-TC; 76700-TC; 80048-TC; 80053-TC; 80076-TC; 81001; 82962-TC; 83735-TC; 84100-TC; 84484-TC; 85025-TC; 87081-TC; 87086-TC; 94799-TC; 97110-TC; 97116-TC; 97530-TC; A4223; G0378; G0480; J0360; J0696; J1815; J3475; J3480; J3490; J7030; J7050; J7060